=== PATIENT | male | born 1935 | race Caucasian/White ===

== ENCOUNTER → 2023-03-03 14:55 | Outpatient (BNVA) | payer MEDICARE, SELFPAY | PROVIDERS: PCP Internal Medicine; Visit Provider Internal Medicine Nephrology | DX: I12.9 Hypertensive chronic kidney disease with stage 1 through stage 4 chronic kidney disease, or unspecified chronic kidney disease (principal); N18.31 Chronic kidney disease, stage 3a | CPT/HCPCS: 99212 ==

== ENCOUNTER 2023-03-03 15:22 | Outpatient (AMB) | payer MEDICARE, SELFPAY ==
--- NOTE | 2023-03-03 15:44 | HO.NEPHOV_ITS ---
HPI HPI Comments History of Present Illness Details I had the privilege of seeing Elio in follow-up for his proteinuric chronic kidney disease. He is diabetic and hypertensive. He is known to have vascular disease including coronary artery disease needing coronary artery bypass grafting. His renal functions have been stable. He denies any chest pain, shortness of breath, paroxysmal nocturnal dyspnea, orthopnea, pedal edema or urinary symptoms. He does not have any orthostasis. He is compliant with medications. His blood pressure has been at goal. He avoids nonsteroidal and anti-inflammatories. He is closely followed by his primary care physician. There were no new active complaints at the time of this office visit. [facility] Medical History (Updated 03/14/23 @ 21:46 by Davidson Rivera MD) Chronic kidney disease, stage 3a Sleep apnea Ischemic heart disease Hypertension Surgical History (Updated 03/03/23 @ 15:44 by Shy Ledesma MA) Hx of CABG Social History (Updated 03/03/23 @ 15:44 by Shy Ledesma MA) Alcohol intake: never Patient Tobacco Use Status: Never used Tobacco Vital Signs 03/03/23 15:46 Height 5 ft 10 in Weight 211 lb 4 oz BMI 30.3 BP 132/60 Blood Pressure Location Lt brachial Position Sitting Pulse 56 Pulse Source Pulse Oximeter Physical Exam Vital Signs: Last Vital Signs Pulse 56 03/03/23 15:46 BP 132/60 03/03/23 15:46 BMI result Body Mass Index 30.3 Const General: comfortable and no acute distress Orientation/consciousness: patient oriented x3 HEENT Head: Yes normocephalic Mouth: Normal oral and palatal mucosa present Eyes EOM: EOMs intact bilaterally Neck Neck: Yes supple Resp Auscultation: clear to auscultation bilaterally Cardio Jugular venous distension: no JVD Rate: regular rate GI Palpation (GI): Soft to palpation Auscultation: normal bowel sounds General: Yes no CVA tenderness Back/Spine/Pelvis Back: no CVA tenderness Skin General skin exam: no rashes or lesions noted Neuro General: patient oriented x3 and moves all extremities Assessment & Plan Assessment & Plan (1) Chronic kidney disease, stage 3a: Code(s): N18.31 - Chronic kidney disease, stage 3a (2) Hypertension: Code(s): I10 - Essential (primary) hypertension Qualifiers: Hypertension type: primary hypertension Qualified Code(s): I10 - Essential (primary) hypertension Plan 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 He is known to have proteinuria. His blood pressure is currently at goal. He has not on any AMPARO inhibitor as he had angioedema from it in the past. He has been having memory issues. His blood pressure has been at goal. He would benefit from a bit of weight loss and dietary changes. He maintains good hydration. His blood sugar control is better. His blood pressure has been at goal. He avoids nonsteroidal anti-inflammatory medications and maintain good hydration. He will be a great candidate for SGLT2 I. I did not make any medication changes today. Follow-up blood work ordered. All his and his 's questions were answered. Follow-up appointment given. Orders: Orders Electrolytes 03/03/23 N18.31 - Chronic kidney disease, stage 3a, I10 - Essential (primary) hypertension Blood Urea Nitrogen 03/03/23 N18.31 - Chronic kidney disease, stage 3a, I10 - Essential (primary) hypertension Creatinine 03/03/23 N18.31 - Chronic kidney disease, stage 3a, I10 - Essential (primary) hypertension Coding Level of Care Code Est Pt Level 4 (02029) Diagnoses Chronic kidney disease, stage 3a N18.31 Primary hypertension I10 Hypertension type: primary hypertension Results Reviewed Nephrology Results: No Data to Display
[2023-03-03 15:46] VITALS: BP 132/60; PULSE 56; BMI 30.3
== END 2023-03-03 16:23 | disposition home or self-care (01) ==
PROVIDERS: PCP Internal Medicine; Visit Provider Internal Medicine Nephrology
DX: N18.31 Chronic kidney disease, stage 3a (principal); I10 Essential (primary) hypertension
CPT/HCPCS: 99214

== ENCOUNTER 2023-08-30 11:00 | Outpatient (AMB) | payer MEDICARE, SELFPAY ==
--- NOTE | 2023-08-30 11:22 | HO.NEPHOV ---
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 He is diabetic and hypertensive. He is known to have vascular disease including coronary artery disease needing coronary artery bypass grafting. His renal functions have been stable. He denies any chest pain, shortness of breath, paroxysmal nocturnal dyspnea, orthopnea, pedal edema or urinary symptoms. He does not have any orthostasis. He is compliant with medications. His blood pressure has been at goal. He avoids nonsteroidal and anti-inflammatories. He is closely followed by his primary care physician. His Nifedipine dose has been reduced to 60 mg daily. There were no new active complaints at the time of this office visit. [facility] Medical History (Updated 03/14/23 @ 21:46 by Davidson Rivera MD) Chronic kidney disease, stage 3a Sleep apnea Ischemic heart disease Hypertension Surgical History Hx of CABG Social History Alcohol intake: never Patient Tobacco Use Status: Never used Tobacco Physical Exam Vital Signs: Last Vital Signs Pulse 49 L 08/30/23 11:23 BP 90/50 L 08/30/23 11:23 Pulse Ox 93 08/30/23 11:23 Oxygen Delivery Method Room Air 08/30/23 11:23 BMI result Body Mass Index 30.8 Const General: comfortable and no acute distress Orientation/consciousness: patient oriented x3 HEENT Head: Yes normocephalic Mouth: Normal oral and palatal mucosa present Eyes EOM: EOMs intact bilaterally Neck Neck: Yes supple Resp Auscultation: clear to auscultation bilaterally Cardio Jugular venous distension: no JVD Rate: regular rate GI Palpation (GI): Soft to palpation Auscultation: normal bowel sounds General: Yes no CVA tenderness Back/Spine/Pelvis Back: no CVA tenderness Skin General skin exam: no rashes or lesions noted Neuro General: patient oriented x3 and moves all extremities Extrem General: Yes no pedal edema Results Reviewed Nephrology Results: No Data to Display Assessment & Plan Assessment & Plan (1) Chronic kidney disease, stage 3a: Code(s): N18.31 - Chronic kidney disease, stage 3a Category: Medical (2) Hypertension: Code(s): I10 - Essential (primary) hypertension Category: Medical Qualifiers: Hypertension type: primary hypertension Qualified Code(s): I10 - Essential (primary) hypertension Plan 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 He is known to have proteinuria. His blood pressure is currently at goal. He has not on any AMPARO inhibitor as he had angioedema from it in the past. He has been having memory issues. His blood pressure has been at goal. He would benefit from a bit of weight loss and dietary changes. He maintains good hydration. His blood sugar control is better. His blood pressure has been at goal. He avoids nonsteroidal anti-inflammatory medications and maintain good hydration. I did not make any medication changes today. Follow-up blood work ordered. All his and his 's questions were answered. Follow-up appointment given. Orders: Orders Blood Urea Nitrogen 6 Months I10 - Essential (primary) hypertension, N18.31 - Chronic kidney disease, stage 3a Creatinine 6 Months I10 - Essential (primary) hypertension, N18.31 - Chronic kidney disease, stage 3a Electrolytes 6 Months I10 - Essential (primary) hypertension, N18.31 - Chronic kidney disease, stage 3a Calcium 6 Months I10 - Essential (primary) hypertension, N18.31 - Chronic kidney disease, stage 3a Protein Creatinine Ratio, Ur 6 Months I10 - Essential (primary) hypertension, N18.31 - Chronic kidney disease, stage 3a Coding Level of Care Code Est Pt Level 4 (11852) Diagnoses Chronic kidney disease, stage 3a N18.31 Primary hypertension I10 Hypertension type: primary hypertension
[2023-08-30 11:23] VITALS: BP 90/50; PULSE 49; O2SAT 93; BMI 30.8
== END 2023-08-30 11:46 | disposition home or self-care (01) ==
PROVIDERS: PCP Internal Medicine; Visit Provider Internal Medicine Nephrology
DX: N18.31 Chronic kidney disease, stage 3a (principal); I10 Essential (primary) hypertension
CPT/HCPCS: 99214

== ENCOUNTER → 2023-08-30 11:00 | Outpatient (BNVA) | payer MEDICARE, SELFPAY | PROVIDERS: PCP Internal Medicine; Visit Provider Internal Medicine Nephrology | DX: I12.9 Hypertensive chronic kidney disease with stage 1 through stage 4 chronic kidney disease, or unspecified chronic kidney disease (principal); N18.31 Chronic kidney disease, stage 3a | CPT/HCPCS: 99212 ==

== ENCOUNTER 2024-04-03 10:32 | Outpatient (AMB) | payer MEDICARE, SELFPAY ==
--- NOTE | 2024-04-03 10:40 | HO.NEPHOV_ITS ---
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 He is diabetic and hypertensive. He is known to have vascular disease including coronary artery disease needing coronary artery bypass grafting. His renal functions have been stable. He denies any chest pain, shortness of breath, paroxysmal nocturnal dyspnea, orthopnea, pedal edema or urinary symptoms. He does not have any orthostasis. He is compliant with medications. His blood pre ssure has been at goal. He avoids nonsteroidal and anti-inflammatories. There were no new active complaints at the time of this office visit. [facility] Medical History (Updated 04/03/24 @ 10:44 by Davidson Rivera MD) Chronic kidney disease, stage 3a Sleep apnea Ischemic heart disease Hypertension Surgical History Hx of CABG Social History Alcohol intake: never Patient Tobacco Use Status: Never used Tobacco Review of Systems Const All systems reviewed & are unremarkable except as noted in HPI and below Physical Exam Const General: comfortable and no acute distress Orientation/consciousness: patient oriented x3 HEENT Head: Yes normocephalic Mouth: Normal oral and palatal mucosa present Eyes EOM: EOMs intact bilaterally Neck Neck: Yes supple Resp Auscultation: clear to auscultation bilaterally Cardio Jugular venous distension: no JVD Rate: regular rate GI Palpation (GI): Soft to palpation Auscultation: normal bowel sounds General: Yes no CVA tenderness Back/Spine/Pelvis Back: no CVA tenderness Skin General skin exam: no rashes or lesions noted Neuro General: patient oriented x3 and moves all extremities Extrem General: Yes no pedal edema Results Reviewed Nephrology Results: No Data to Display Assessment & Plan Assessment & Plan (1) Chronic kidney disease, stage 3a: Code(s): N18.31 - Chronic kidney disease, stage 3a Category: Medical (2) Hypertension: Code(s): I10 - Essential (primary) hypertension Category: Medical Qualifiers: Hypertension type: primary hypertension Qualified Code(s): I10 - Essential (primary) hypertension (3) Diabetic nephropathy associated with type 2 diabetes mellitus: Code(s): E11.21 - Type 2 diabetes mellitus with diabetic nephropathy Category: Medical Plan 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 He is known to have proteinuria. His blood pressure is currently at goal. He has not on any AMPARO inhibitor as he had angioedema from it in the past. He has been having memory issues. His blood pressure has been at goal. He would benefit from a bit of weight loss and dietary changes. He maintains good hydration. His blood sugar control is better. His blood pressure has been at goal. He avoids nonsteroidal anti-inflammatory medications and maintain good hydration. He is a great candidate for SGLT2 i. I did not make any medication changes today. Follow-up blood work ordered. All his and his 's questions were answered. Follow-up appointment given Orders: Orders Protein Creatinine Ratio, Ur 7 Months E11. - Type 2 diabetes mellitus with diabetic nephropathy, I10 - Essential (primary) hypertension, N18.31 - Chronic kidney disease, stage 3a Creatinine 7 Months E11.21 - Type 2 diabetes mellitus with diabetic nephropathy, I10 - Essential (primary) hypertension, N18.31 - Chronic kidney disease, stage 3a Blood Urea Nitrogen 7 Months E11.21 - Type 2 diabetes mellitus with diabetic nephropathy, I10 - Essential (primary) hypertension, N18.31 - Chronic kidney disease, stage 3a Electrolytes 7 Months E11.21 - Type 2 diabetes mellitus with diabetic nephropathy, I10 - Essential (primary) hypertension, N18.31 - Chronic kidney disease, stage 3a Coding Level of Care Code Est Pt Level 4 (75152) Diagnoses Chronic kidney disease, stage 3a N18.31 Primary hypertension I10 Hypertension type: primary hypertension Diabetic nephropathy associated with type 2 diabetes mellitus E11.
[2024-04-03 10:42] VITALS: BP 126/54; PULSE 61; O2SAT 93; BMI 31.0
--- OUTSIDE RECORDS SUMMARY | 2024-04-03 12:32 | XMS_ITS | Data Portability ---
Author Organization [place] - [facility], Allergy Address [address] [address] Assessment Encounter Date Assessment Date Assessment LastModified by Organization Details LastModified Time 08/29/2023 08/29/2023 Patient presents for cerumen removal. Cerumen removed bilaterally without difficulty. TMs normal to inspection. Follow up as scheduled for repeat procedure. abril Not available 08/29/2023 12:18:23 03/05/2024 03/05/2024 88-year-old male presents for cerumen removal. Cerumen removed bilaterally. TMs normal to inspection. Follow-up in 6 months. abril Not available 03/05/2024 12:14:09 Plan of Treatment Reminders Order Date Submit Date Provider Last Modified By Organization Details Last Modified Time Details Appointments Establish ed 15 2024 10:00A M PAMELA BLUE PA-C Not available Not available Not available Lab None recorded. Referral None recorded. Procedures None recorded. Surgeries None recorded. Imaging None recorded. Medication Orders None recorded. Patient TargetsNo targets recorded. Patient InstructionsNo instructions recorded. Reason for Referral None Reported. Results Created Date Observation Date Name Description Value Unit Range Abnormal Flag Note LastModifiedBy Organization Detail LastModifiedTime 09/28/1902/11/2022 imagi ng/di agnos tic resul t No observ ation record ed. [email or web address] Not Available 05:44:57 09/28/19 24 03/03/2020 imagi ng/di agnos tic resul t No observ ation record ed. [email or web address] Not Available 05:45:03 09/28/1903/13/2018 imagi ng/di agnos tic resul t No observ ation record ed. [email or web address] Not Available 05:45:10 09/28/1903/13/2018 imagi ng/di agnos tic resul t No observ ation record ed. [email or web address] Not Available 05:45:12 09/28/1912/10/2020 imagi ng/di agnos tic resul t No observ ation record ed. [email or web address] Not Available 05:45:46 09/28/1912/24/2020 imagi ng/di agnos tic resul t No observ ation record ed. [email or web address] Not Available 05:46:02 09/28/1912/25/2018 imagi ng/di agnos tic resul t No observ ation record ed. [email or web address] Not Available 05:46:06 09/28/1912/25/2018 imagi ng/di agnos tic resul t No observ ation record ed. [email or web address] Not Available 05:46:07 09/28/1912/24/2020 audio gram No observ ation record ed. [email or web address] Not Available 05:47:09 Result Notes None recorded. Problems Name Problem SNOMED Code Status Onset Date Resolution Date Notes Provider Name and Address Organization Details Recorded Time Sensorin eural hearing loss 71052227 Active 2016 Sensorin eural hearing loss; Location : bilatera l CMS Risk: low risk CMS Treatmen t: new problem (to examiner ): addition al workup planned Sensori neural hearing loss; Location : left CMS Risk: low risk CMS Treatmen t: new problem (to examiner ): addition al workup planned Sensori neural hearing loss; Location : right CM S Risk: low risk CMS Treatmen t: new problem (to examiner ): addition al workup planned Not Available [facility] 03:02:45 Sensorin eural hearing loss of bilatera l ears 581838675 Active 2016 Sensorin eural hearing loss bilatera lly; [facility] Treatmen t: new problem (to examiner ): no addition al workup planned Note: Date Diagnose d: 5 4:29 PM (389.18) ; Start Date : 03/08/19 15 Senso rineural hearing loss, bilatera l; Note: Date Diagnose d: 08/12/2016 10:59 AM (H90.3) Not Available [facility] 4 03:02:45 Otorrhea of right ear [id number] 60913 Completed 202009/09/2023 Otorrhea , right ear; Note: Date Diagnose d: 11:33 AM (H92.11) Not Available [facility] 4 03:02:47 Posterio r rhinorrh ea 40071833 Active 2016 Postnasa l drip; Note: Date Diagnose d: 08/12/2016 10:16 AM (R09.82) Not Available [facility] 4 03:02:46 Diffuse otitis externa 73164190 Active 2020 Diffuse otitis externa, right ear; Note: Date Diagnose d: 1 11:33 AM (H60.311 ) Not Available [facility] 4 03:02:45 Impacted cerumen of bilatera l ears 73901063861 47753 Active 2022 Impacted cerumen, bilatera l; Note: Date Diagnose d: 05/13/2022 2:03 PM (H61.23) Not Available [facility] 4 03:02:44 Nasal congesti on 00785672 Active 2016 Nasal congesti on; Note: Date Diagnose d: 08/12/2016 10:16 AM (R09.81) Not Available [facility] 4 03:02:46 Obstruct belkis sleep apnea syndrome 12939908 Active 2016 Obstruct belkis sleep apnea (adult) (pediatr ic); Note: Date Diagnose d: 08/12/2016 10:16 AM (G47.33) Not Available [facility] 4 03:02:47 Contact dermatit is 74244315 Active 2014 Dermatit is, contact; [facility] Treatmen t: new problem (to examiner ): no addition al workup planned Note: Date Diagnose d: 5 4:29 PM (692.9) Not Available [facility] 4 03:02:46 Candidal otitis externa 13703311 Active 2021 Candidal otitis externa; Note: Date Diagnose d: 2 11:45 AM (B37.84) Not Available [facility] 4 03:02:45 Allergic rhinitis 77501086 Active 2016 Other allergic rhinitis ; Note: Date Diagnose d: 08/12/2016 10:16 AM (J30.89) Not Available [facility] 4 03:02:46 Problem Notes None recorded. Procedures Surgical History Date Name Laterality Status Provider Name and Address Organization Details Recorded Time 5 Cerumen removal without microscope bilat completed PAMELA BLUE PA-C [address] [place] [address], [phone], [facility] 03/05/2024 12:13:46 4 Cerumen removal without microscope bilat completed PAMELA BLUE PA-C [address] [place] [address], [phone], [facility] 08/29/2023 12:18:11 Imaging Results Imaging Date Name Status LastModified by Organiz ation Details LastModified Time 02/11/2022 imaging/diagno stic result completed Information not available 09/28/2023 05:44:57 03/03/2020 imaging/diagno stic result completed Information not available 09/28/2023 05:45:03 03/13/2018 imaging/diagno stic result completed Information not available 09/28/2023 05:45:10 03/13/2018 imaging/diagno stic result completed Information not available 09/28/2023 05:45:12 12/10/2020 imaging/diagno stic result completed Information not available 09/28/2023 05:45:46 12/24/2020 imaging/diagno stic result completed Information not available 09/28/2023 05:46:02 12/25/2018 imaging/diagno stic result completed Information not available 09/28/2023 05:46:06 12/25/2018 imaging/diagno stic result completed Information not available 09/28/2023 05:46:07 12/24/2020 audiogram completed Information not available 09/28/2023 05:47:09 Procedure Notes None recorded. Medical Equipment None Reported. Allergies Allergen ID Allergen Name Allergen Category Reaction Reaction Severity Criticality Documentation Date Start Date Code Code System Note Provider Name and Address Organization Details Recorded Time [id number] lisinopri l medicatio n other Not available Not available 06/21/2023 80957 RxNorm React ion: other react ion, Unkno wn; Not Available [facility] 01:16:20 Medications Name Sig Start Date Stop Date Status Note LastModified by Organization Details LastModified Time Elocon 0.1 % topical cream 12/10 completed Medicati on ID: [id number] Pr escribed By Name: Charisma Louie nd Name: Elocon S end Method: E-Prescr ibed Sub s Allowed: subs OK Speci al Instruct ion: Apply to ears twice a day as needed M edicatio nGeneric Name: Elocon Not Available Not Available Not Available celecoxib 200 mg capsule active Not Available Not Available Not Available metformin 500 mg tablet TAKE 1 TABLET TWICE A DAY active Not Available Not Available No t Available Novolin 70/30 U-100 Insulin 100 unit/mL subcutane ous suspensio n active Not Available Not Available Not Available carvedilo l 25 mg tablet 08/12 completed Medicati on ID: [id number] Du ration Value: 90 Brand Name: carvedil ol Send Method: E-Prescr ibed Sub s Allowed: subs OK Medic ationGen ericName : carvedil ol Not Available Not Available Not Available clonidine HCl 0.1 mg tablet 2014 active Medicati on ID: [id number] Du ration Value: 90 Brand Name: clonidin e HCl Send Method: E-Prescr ibed Sub s Allowed: subs OK Medic ationGen ericName : clonidin e HCl Not Available Not Available Not Available carvedilo l 6.25 mg tablet active Not Available Not Available Not Available doxycycli ne hyclate 100 mg capsule 1 capsule by mouth active Not Available Not Available No t Available Toprol XL 25 mg tablet,ex tended release 12/10 completed Medicati on ID: [id number] D uration Value: 90 Brand Name: Toprol XL Send Method: E-Prescr ibed Sub s Allowed: subs OK Medic ationGen ericName : Toprol XL Not Available Not Available Not Available carvedilo l 12.5 mg tablet active Not Available Not Available Not Available donepezil 5 mg tablet active Not Available Not Available Not Available nifedipin e ER 90 mg tablet,ex tended release active Not Available Not Available Not Available Elocon 0.1 % topical lotion (solution ) 12/10 completed Medicati on ID: [id number] Br and Name: Elocon S end Method: E-Prescr ibed Sub s Allowed: subs OK Speci al Instruct ion: Apply to ears twice a day as needed M edmaggienarda Cheekic Name: Elocon Not Available Not Available Not Available donepezil 10 mg tablet active Not Available Not Available Not Available sertralin e 100 mg tablet active Not Available Not Available Not Available Valeri Low Dose Aspirin 81 mg tablet,de layed release 2020 active Medicati on ID: [id number] B rand Name: Aspirin Low Dose Sen d Method: E-Prescr ibed Sub s Allowed: subs OK Medic ationGen ericName : Aspirin Low Dose Not Available Not Available Not Available betametha sone valerate 0.1 % lotion active Not Available Not Available Not Available amlodipin e 5 mg tablet 08/12 completed Medicati on ID: 18341 Du ration Value: 90 Brand Name: amlodipi ne Send Method: E-Prescr ibed Sub s Allowed: subs OK Medic ationGen ericName : amlodipi ne Not Available Not Available Not Available chlorthal idone 50 mg tablet 12/10 completed Medicati on ID: [id number] D uration Value: 30 Brand Name: chlortha lidone S end Method: E-Prescr ibed Sub s Allowed: subs OK Medic ationGen ericName : chlortha lidone Not Available Not Available Not Available omeprazol e 40 mg capsule,d elayed release 2016 active Medicati on ID: [id number] D uration Value: 90 Brand Name: omeprazo le Send Method: E-Prescr ibed Sub s Allowed: subs OK Medic ationGen ericName : omeprazo le Not Available Not Available Not Available triamcino lone acetonide 0.1 % topical cream active Not Available Not Available Not Available quinapril 40 mg tablet 12/10 completed Medicati on ID: [id number] D uration Value: 90 Brand Name: quinapri l Send Method: E-Prescr ibed Sub s Allowed: subs OK Medic ationGen ericName : quinapri l Not Available Not Available Not Available levothyro xine 25 mcg tablet active Not Available Not Available Not Available lorazepam 0.5 mg tablet 2020 active Medicati on ID: [id number] B rand Name: lorazepa m Send Method: E-Prescr ibed Sub s Allowed: subs OK Medic ationGen ericName : lorazepa m Not Available Not Available Not Available triamcino lone acetonide 0.025 % topical cream active Not Available Not Available Not Available tamsulosi n 0.4 mg capsule TAKE 1 CAPSULE DAILY active Not Available Not Available No t Available Humalog U-100 Insulin 100 unit/mL subcutane ous solution INJECT 25 UNITS PRE BREAKFAS T, 15-20 UNITS PRE LUNCH, 20-25 UNITS PRE DINNER active Not Available Not Available No t Available OneTouch Ultra Test strips active Not Available Not Available Not Available sulfaceta mide sodium 10 % eye drops 2021 active Medicati on ID: [id number] D uration Value: 14 Brand Name: sulfacet amide sodium S end Method: E-Prescr ibed Sub s Allowed: subs OK Speci al Instruct ion: apply 4 drops to right ear twice daily. M edicatio nGeneric Name: sulfacet amide sodium Not Available Not Available Not Available erythromy lakesha 5 mg/gram (0.5 %) eye ointment active Not Available Not Available Not Available Ponaris nasal solution 1 ml into both nostrils 2016 active Medicati on ID: [id number] D uration Value: 30 Brand Name: Maggie Send Method: E-Prescr ibed Sub s Allowed: subs OK Speci al Instruct ion: use 1/2 dropper in each nostril BID... M edicatio nGeneric Name: Maggie Not Available Not Available Not Available clotrimaz ole-betam ethasone 1 %-0.05 % topical cream Apply 1 a small amount to affected area twice a day 2021 active Medicati on ID: [id number] D uration Value: 14 Brand Name: clotrima zole-bet amethaso ne Send Method: E-Prescr ibed Sub s Allowed: subs OK Speci al Instruct ion: Apply with fingerti p to external ear BID X 3 week and then as needed M edicatio nGeneric Name: clotrima zole-bet amethaso ne Not Available Not Available Not Available polymyxin B sulfate 10,000 unit-trim ethoprim 1 mg/mL eye drops active Not Available Not Available No t Available Humulin N NPH U-100 Insulin (isophane susp) 100 unit/mL subcutane ous INJECT 50 UNITS SUBCUTAN EOUSLY IN THE MORNING AND 75 UNITS AT BEDTIME active Not Available Not Available No t Available clotrimaz ole 1 % topical solution 2020 active Medicati on ID: [id number] D uration Value: 14 Prescri bed By Name: KASANDRA Rinaldi nd Name: pedrojacky tariq strong Method: E-Prescr ibed Sub s Allowed: subs OK Speci al Instruct ion: 4 drops to affected ear two times a day X 14 days Med icationG enericNa me: clotrima zole Not Available Not Available Not Available hydrochlo rothiazid e 25 mg tablet TAKE 1 TABLET DAILY active Not Available Not Available No t Available furosemid e 20 mg tablet 08/12 completed Medicati on ID: [id number] Du ration Value: 90 Brand Name: furosemi de Send Method: E-Prescr ibed Sub s Allowed: subs OK Medic ationGen ericName : furosemi de Not Available Not Available Not Available gabapenti n 100 mg capsule active Not Available Not Available Not Available azelastin e 137 mcg (0.1 %) nasal spray active Not Available Not Available Not Available nifedipin e ER 60 mg tablet,ex tended release active Not Available Not Available Not Available metformin ER 500 mg tablet,ex tended release 24 hr 2014 [place] Medicati on ID: [id number] Du ration Value: 90 Brand Name: metformi n Send Method: E-Prescr ibed Sub s Allowed: subs OK Medic ationGen ericName : metformi n Not Available Not Available Not Available doxycycli ne hyclate 100 mg tablet active Not Available Not Available Not Available tobramyci n 0.3 %-dexamet hasone 0.1 % eye drops,sivan pension active Not Available Not Available Not Available neomycin 3.5 mg/g-poly myxin B 10,000 unit/g-de xameth 0.1 % eye oint active Not Available Not Available Not Available ezetimibe 10 mg tablet active Not Available Not Available Not Available cyclospor ine 0.05 % eye drops in a dropperet te INSTILL 1 DROP INTO BOTH EYES TWICE DAILY active Not Available Not Available No t Available Ciprodex 0.3 %-0.1 % ear drops,sivan pension 4 drop into right ear 12/10 completed Medicati on ID: [id number] D uration Value: 14 Prescri bed By Name: KASANDRA Rinaldi nd Name: Ciprodex Send Method: E-Prescr ibed Sub s Allowed: subs OK Speci al Instruct ion: x 14 days Med icationG enericNa me: Ciprodex Not Available Not Available Not Available rosuvasta tin 20 mg tablet 2016 active Medicati on ID: [id number] D uration Value: 90 Brand Name: rosuvast atin Sen d Method: E-Prescr ibed Sub s Allowed: subs OK Medic ationGen ericName : rosuvast atin Not Available Not Available Not Available rosuvasta tin 40 mg tablet active Not Available Not Available Not Available memantine 5 mg tablet active Not Available Not Available Not Available hydrochlo rothiazid e 12.5 mg tablet 2020 active Medicati on ID: [id number] B rand Name: hydrochl orothiaz raegan Send Method: E-Prescr ibed Sub s Allowed: subs OK Medic ationGen ericName : hydrochl orothiaz raegan Not Available Not Available Not Available fenofibra te 54 mg tablet active Not Available Not Available Not Available clonidine HCl ER 0.1 mg tablet,ex tended release,1 2 hr active Not Available Not Available Not Available sertralin e 200 mg capsule active Not Available Not Available Not Available Vitals Date Recorded Body height Body mass index (BMI) Body weight Provider Name and Address Organization Details Last Updated DateTime 08/29/2023 177.8 cm 30.4 kg/m2 39643.58 g Forest Pedraza [facility] 08/29/2023 11:24:58 Date Recorded Body height Body mass index (BMI) Body weight Provider Name and Address Organization Details Last Updated DateTime 03/05/2024 177.8 cm 35.6 kg/m2 164109.91 g Ling Mendes [facility] 03/05/2024 10:48:01 Social History None recorded. Functional Status None recorded. Mental Status None recorded. Family History Nothing Reported. Medical History No medical history recorded. Past Encounters Encounter ID Performer Location Encounter Start Date Encounter Closed Date Diagnosis/Indication Diagnosis SNOMED-CT Code Diagnosis ICD10 Code Diagnosis Note [id number] ARIES BULL MD [facility] [address] [address] 08/29/2023 11:11:13 08/29/2023 11:44:07 Impacted cerumen of bilateral ears 4361163850 256227 H61.23 [id number] ARIES BULL MD [facility] [address] [address] 03/05/2024 10:41:57 03/05/2024 11:02:54 Impacted cerumen of bilateral ears 5684686185 132031 H61.23 Health Concerns Section Related Observation LastModified by Organization Detai ls LastModified Time None Recorded Concern Status LastModified by Organization Details LastModified Time None Recorded Advance Directives Directive None Recorded Payers Encounter Date Sequence Insurance Name Policy Number Policy Vargas Covered Member ID Vargas Member ID Guarantor Name 08/29/2023 1 [place] [employer] Elio Hernandez [id number] Elio Mosquedack 08/29/2023 2 [place] [id number] Elio Monroy Mary [id number] Elio [place]wick 03/05/2024 1 [place] Elio Mosquedack [id number] Elio Monroy Mary 03/05/2024 2 [place] [id number] Elio Monroy Mary [id number] Elio Porfirio Mary Notes Date Note Type Note Provider Name and Address Organization Details Recorded Time 08/29/2023 text/html 88-year-old male presents for cerumen removal. No acute issues since last visit. ARIES WEINBERG MD [address] [place] [address], [phone], [place] [facility] 08/29/2023 12:57:48 03/05/2024 text/html 88-year-old male presents for cerumen removal. Recently obtained new hearing aids. ARIES WEINBERG MD [address] [place] [address], [phone], [place] [facility] 03/05/2024 12:40:27
--- OUTSIDE RECORDS SUMMARY | 2024-04-03 12:32 | XMS_ITS | Continuity of Care Document ---
Author Organization [facility] [address] [place] [address] Phone [phone] Care Team Providers Care Vulcanizer Name Role Phone Pratik Kelly M.D. Care Team Information Recei asmita [phone] Problems Active Problems Provider Date Type 2 diabetes mellitus Svitlana Rodriguez M.D. Onset: 10/05/2021 Essential hypertension Zoya Tenorio Onset: 10/05/2021 Hyperlipidemia Svitlana Rodriguez M.D. Ons et: 10/05/2021 Osteoarthritis Svitlana Rodriguez M.D. Ons et: 10/05/2021 Obstructive sleep apnea syndrome Svitlana Schuster M.D. Onset: 10/05/2021 Anxiety Svitlana Rodriguez M.D. Ons et: 10/05/2021 Hearing loss Svitlana Rodriguez M.D. Ons et: 10/05/2021 Gastroesophageal reflux disease Svitlana Murray M.D. 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 Onset: 10/05/2021 Basal cell carcinoma of skin Svitlana santos M.D. Onset: 10/05/2021 Coronary atherosclerosis Svitlana Rodriguez M.D. Onset: 10/05/2021 Myocardial infarction Nirmala Tenorio Onset: 10/05/2021 Diabetic peripheral neuropathy Svitlana anderson M.D. Onset: 10/05/2021 Peripheral vascular disease Nirmala AvilaD. Onset: 10/05/2021 Depressive disorder Svitlana Rodriguez M.D. Onset: 01/26/2023 Chronic kidney disease stage 3 Svitlana anderson M.D. Onset: 01/27/2023 Social History Type Date Description Comments Sex Unknown Lives With Significant Other Work Status Retired Tobacco Use Start: Unknown Never Smoked Cigarettes ETOH Use Never used alcohol Allergies and adverse reactions Active Allergies Criticality Reaction Severity Comments Date Lisinopril Unable to assess criticality facial swelling 10/05/2021 Medications Active Medications SIG Qnty Indications Order ing Provider Date Freestyle Brodie 3/[place]/Glucose Monitoring Fyudzp8Tjdyld Device use with sensors to check blood sugar 1units E11Valeriy Rodriguez M.D. 12/28/2023 Onetouch UltraStrips Test 1 to 2 times daily 200units E11Valeriy Rodriguez M.D. 04/30/2022 Metformin IZY006iv Tablets Take 1 Tablet Twice A Day 180tabs E11Valeriy Rodriguez M.D. 03/23/2022 Levothyroxine Vgvsur64lvf Tablets take 1 tablet by mouth every day Unknown Carvedilol6.25mg Tablets 1 by mouth twice a day Unknown Nifedipine ER60mg Tablets ER 24HR 1 by mouth every day Unknown Tevsilpvl89pz Tablets 1 by mouth every day Unknown Sertraline KWY620hy Capsules 1 by mouth every day Unknown Donepezil GMB30lx Tablets 1 by mouth every day Unknown Aspirin Ec Low Dghx62kb Tablets DR 1 by mouth every day Svitlana Rodriguez M.D. Vitamin C500mg Chewtabs 1 by mouth every day Svitlana Rodriguez M.D. Folic Gdjc521ccq Tablets 1 qd Svitlana Rodriguez M.D. Iron (Ferrous Sulfate)325(65Fe) mg Tablets 1 by mouth every day Svitlana Rodriguez M.D. Fish Oil [place]-70320vh Capsules 1 by mouth every day Svitlana Rodriguez M.D. Rqrb52gk Tablets 1 by mouth every day Svitlana Rodriguez M.D. Zaqycpqut272mm Tablets 1 by mouth every day Svitlana Rodriguez M.D. Calcium 600 + H385-534eu-Krmv Tablets 1 by mouth every day Svitlana Rodriguez M.D. Vitamin Z590cva (2000 Ut) Capsules 1 by mouth every day Svitlana Rodriguez M.D. Vitamin M2867jj Tablets 1 qd Svitlana Rodriguez M.D. Vitamin I070678flb Tablets ER 1 by mouth every day Svitlana Rodriguez M.D. Csxhdoyywjr907bu Tablets 4 tabs prior to dental work Svitlana Rodriguez M.D. Restasis0.05% Emulsion 1 drop each eye twice daily Svitlana Rodriguez M.D. Humulin I411Rybd/ML Suspension Inject 50 Units In The Morning 75 Units AT Bedtime 130ml E11.8 Svitlana Rodriguez M.D. Kufzbqf509Okyr/ML Solution 25 units prebreakfast, 15-20 units prelunch, 20-25 units predinner (dx:11.8) 60ml E11.8 Svitlana Rodriguez M.D. Flomax0.4mg Capsules Take 1 tablet by mouth every day 90caps Svitlana Rodriguez M.D. Rosuvastatin Nfozdxg45bi Tablets 1 by mouth every day 90tabs Svitlana Rodriguez M.D. Kzhaxkzwtknwpmwhznx61 .5mg Tablets 1 by mouth every day 90tabs Svitlana Rodriguez M.D. Kxaimrefun07sa Capsules DR 1 by mouth every day 90caps Svitlana Rodriguez M.D. Clonidine HCL0.1mg Tablets 1 tabs by mouth twice a day Am/PM 90tabs Svitlana Rodriguez M.D. Vital Signs Date Vital Result Comment 01/23/2024 3:03pm BP Systolic 144 mmHg BP Diastolic 58 mmHg Heart Rate 61 /min Height 70 inches 5'10 Weight 218.12 lb BMI (Body Mass Index) 31.3 kg/m2 Results Test Acquired Date Facility Test Result H/L Range N ote Laboratory test finding 01/23/2024 Inhouse Glucose Fingerstick 187 Hemoglobin A1c 7.5% Laboratory test finding 09/14/2023 Inhouse Glucose Fingerstick 147 Hemoglobin A1c 8.1% Laboratory test finding 05/20/2023 Inhouse Glucose Fingerstick 119 Hemoglobin A1c 7.7% Laboratory test finding 01/26/2023 Inhouse Glucose Fingerstick 132 Hemoglobin A1c 8.8% Laboratory test finding 09/17/2022 Inhouse Glucose Fingerstick 158 Hemoglobin A1c 8.0% Laboratory test finding 06/08/2022 [facility] Hemoglobin A1c 7.8 % High (4.0-5.6) 1 Laboratory test finding 05/17/2022 Inhouse Glucose Fingerstick 144 Laboratory test finding 01/22/2022 [facility] Hemoglobin A1c <pending> Laboratory test finding 10/05/2021 Inhouse Glucose Fingerstick 7.6% Hemoglobin A1c 147 1 MONITORING: In known diabetic patients, hemoglobin A1c targets should be discussed with health care provider. DIAGNOSTIC USE: The [place] Diabetes Association (ADA) and the World Health Organization (WHO) recommend the use of HbA1c to diagnose diabetes using a threshold of 6.5%. Patients who have an HbA1c between 5.7% and 6.4% are considered at increased risk for developing diabetes in the future. CAUTION: Falsely low HbA1c results may be observed in patients with hemolytic anemia, homozygous forms of abnormal hemoglobin (e.g. SS, CC, SC), , recent blood loss or hemoglobin F greater than 7%. Fructosamine may be used as an alternate test in these cases. REFERENCE: ADA: Standards of Medical Care in Diabetes 2020, The Journal of Clinical and Applied Research and Education Volume 43, Supplement 1 Procedures Date Code Description Status 01/23/2024 57584 Glucose Monitoring Interpeta tion And Report Completed 09/14/2023 42734 Glucose Monitoring Interpeta tion And Report Completed 05/20/2023 75407 Glucose Monitoring Interpeta tion And Report Completed 09/17/2022 35302 Glucose Monitoring Interpeta tion And Report Completed 01/22/2022 98757 Collection Of Venous Blood B y Venipuncture Completed 10/05/2021 94470 Glucose Monitoring Interpeta tion And Report Completed Medical Devices Description No Information Available Encounters Type Date Location Provider Dx Diagnosis Office Visit 01/23/2024 3:00p Main Office Svitlana Rodriguez M.D. 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 01/23/2024 E11.51 Type 2 diabetes mellitus with diabetic peripheral angiopathy without gangrene Svitlana Rodriguez M.D. 01/23/2024 I25.10 Atherosclerotic heart disease of [place] coronary artery without angina pectoris Svitlana Rodriguez M.D. 01/23/2024 I10 Essential (primary) hyperten porsche Svitlana Rodriguez M.D. 01/23/2024 Z79.4 correction (current) use of i nsulin Svitlana Rodriguez M.D. 01/23/2024 E11.65 Type 2 diabetes mellitus with hyperglycemia Svitlana Rodriguez M.D. 01/23/2024 E03.9 Hypothyroidism, unspecified Svitlana Rodriguez M.D. Plan of Treatment Future Appointment(s):* 05/24/2024 2:15 pm - Svitlana Rodriguez M.D. at Main Office 10/05/2021 - Svitlana Rodriguez M.D.* E11.8 Type 2 diabetes mellitus with unspecified complications * I10 Essential (primary) hypertension * I25.10 Atherosclerotic heart disease of [place] coronary artery without angina pectoris Functional Status Description No Information Available Mental Status Description No Information Available Referrals Description No Information Available
--- OUTSIDE RECORDS SUMMARY | 2024-04-03 12:32 | XMS_ITS | Clinical Summary ---
Author Organization [facility] Address [address] [place] [address] Phone Care Team Providers Care Construction Rep Name Role Phone Pratik Kelly MD Primary Care Provider [phone] Allergies Active Allergy Reactions Criticality Noted Date Comments Lisinopril Other (see comments) 05/05/2020 Medications metFORMIN XR (GLUCOPHAGE-XR) 500 MG 24 hr tablet Take 1 tablet by mouth 2 (two) times a day 1 Active cloNIDine (CATAPRES) 0.1 MG tablet Take 1 tablet by mouth 2 (two) times a day 0 Active carvedilol (COREG) 12.5 MG tablet Take 1 tablet by mouth 2 (two) times a day 1 Active hydroCHLOROthia zide (HYDRODIURIL) 12.5 MG tablet Take 1 tablet by mouth 1 (one) time each day 1 Active rosuvastatin (CRESTOR) 20 MG tablet Take 1 tablet by mouth 1 (one) time each day 1 Active NIFEdipine CC (ADALAT CC) 90 MG 24 hr tablet Take 1 tablet by mouth 1 (one) time each day 0 Active NovoLIN 70/30 (70-30) 100 UNIT/ML injection 1 Active omeprazole (PriLOSEC) [address] capsule Take 40 mg by mouth 1 (one) time each day Do not crush or chew. Active acetaminophen (TYLENOL) 500 MG tablet Take 500 mg by mouth if needed for mild pain Active fluorouracil (EFUDEX) 5 % cream Apply topically Active alclomethasone (ACLOVATE) 0.05 % cream Apply topically Active insulin lispro (HumaLOG) 100 UNIT/ML injection Inject under the skin Active insulin NPH, Isophane, (HumuLIN,NovoLI N) 100 UNIT/ML injection Inject under the skin Active zinc gluconate 50 MG tablet Take 50 mg by mouth 1 (one) time each day Active cyanocobalamin (VITAMIN B-12) 1000 MCG tablet Take 100 mcg by mouth 1 (one) time each day Active Magnesium 250 MG tablet Take 1 tablet by mouth 1 (one) time each day Active calcium carbonate-vitam in D 600-400 MG-UNIT per tablet Take 1 tablet by mouth 1 (one) time each day Active omega-3 (FISH OIL) 1200 MG capsule Take by mouth 1 (one) time each day Active Cholecalciferol 50 MCG (2000 UT) capsule Take 1 tablet by mouth 1 (one) time each day Active docusate sodium (COLACE) 100 MG capsule Take 100 mg by mouth 1 (one) time each day Active aspirin (ST KASSIE) 81 MG EC tablet Take 81 mg by mouth 1 (one) time each day Active sertraline (ZOLOFT) 100 MG tablet Take 1 tablet by mouth 1 (one) time each day Active tamsulosin (FLOMAX) 0.4 MG 24 hr capsule Take 0.4 mg by mouth 1 (one) time each day Active fenofibrate (TRICOR) 54 MG tablet Take 54 mg by mouth 1 (one) time each day Active cycloSPORINE (RESTASIS) 0.05 % ophthalmic emulsion 1 drop 2 (two) times a day Active Active Problems Problem Noted Date Diagnosed Date Anxiety 10/05/2021 Basal cell carcinoma of skin 10/05/2021 Diabetic peripheral neuropathy 10/05/2021 Gastroesophageal reflux disease 10/05/2021 H/O: depression 10/05/2021 Hearing loss 10/05/2021 Hyperlipidemia 10/05/2021 Myocardial infarction 10/05/2021 Obstructive sleep apnea syndrome 10/05/2021 Osteoarthritis 10/05/2021 Squamous cell carcinoma of skin of face 10/06/19 Type 2 diabetes mellitus 10/05/2021 Acute non-ST segment elevation myocardial infarc tion 05/05/2021 Calcific coronary arteriosclerosis 05/05/2021 Diverticulitis of colon 05/05/2021 Hypertension 05/05/2021 Proteinuria, not otherwise specified 11/04/2020 Stage 3a chronic kidney disease 05/06/2020 Edema 05/05/2020 Essential hypertension 05/05/2020 Social History Tobacco Use Types Packs/Day Years Used Date Smoking Tobacco: Never Smokeless Tobacco: Never Alcohol Use Standard Drinks/Week Comments Never 0 (1 standard drink = 0.6 oz pur e alcohol) Sex and Gender Information Value Date Recorded Sex Assigned at Not on file Legal Sex Male 4:57 PM EST Gender Identity Not on file Sexual Orientation Not on file Last Filed Vital Signs Vital Sign Reading Time Taken Comments Blood Pressure 122/80 05/13/2022 2:09 PM EDT Pulse 66 05/13/2022 2:09 PM EDT Temperature - - Respiratory Rate - - Oxygen Saturation 96% 05/13/2022 2:09 PM EDT Inhaled Oxygen Concentration - - Weight 96.5 kg (212 lb 12.8 oz) 05/13/2022 2:09 PM EDT Height - - Body Mass Index - - Plan of Treatment Health Maintenance Due Date Last Done Comments Pneumococcal Vaccine: 65+ Years (1 of 2 - PCV) 1941 Diabetes: Hemoglobin A1C 12/29/2021 020, 06/05/2019 Diabetes: Ophthalmology Exam 12/29/2021 Diabetes: Pedal Pulse Checked 12/29/2021 Diabetes: Sensory Foot Exam 12/29/2021 Diabetes: Visual Foot Exam 12/29/2021 Influenza Vaccine (#1) 2023 Hepatitis B Vaccine Aged Out No longe r eligible based on patient's age to complete this topic Procedures Procedure Name Priority Date/Time Associated Diagnosis Comments EXT RESULT ENTRY Routine 01/29/2020 from Last 3 Months or Most Recently Relevant to Health Maintenance Results * (ABNORMAL) EXT RESULT ENTRY (01/29/2020) Hemoglobin 12.5(A) 13.5 - 17.5 Hematocrit 39.3(A) 41.0 - 53.0 Platelets 332 150 - 399 10*3/UL Iron 49 UG/DL Iron Saturation (TSat) 17 % TIBC 232 ug/dL Ferritin 181.0 18.0 - 300.0 NG/ML Sodium 140 137 - 147 Potassium 4.1 3.4 - 5.5 Chloride 96(A) 99 - 108 Bicarbonate (CO2) 33(A) 22 - 30 mmol/L Anion Gap 11 <=30 MMOL/L BUN 20 4 - 21 mg/dL Creatinine 1.20 0.60 - 1.30 mg/dL Calcium 10.5 8.7 - 10.7 mg/dL eGFR Non-Afr Indonesian 54 eGFR 63 Vitamin D, 25-OH, Total 43.2 ng/mL Hemoglobin A1C 7.7(A) 4.0 - 6.0 01/29/2020 Historical Provider LAB BLOOD ORDERABLES Rissa l Result from Last 3 Months or Most Recently Relevant to Health Maintenance Insurance MEDICARE [facility] MEDICARE [facility] Care Teams Construction Rep Relationship Specialty Start Date End Date Pratik Kelly MD [address] [place] [address] PCP - General Internal Medicine 11/04/20
--- OUTSIDE RECORDS SUMMARY | 2024-04-03 12:32 | XMS_ITS | Clinical Summary ---
Author Organization [address] [place] [address] [place] [phone] Phone Care Team Providers Care Mining Consultant Name Role Phone Pratik Kelly MD Primary Care Provider [phone] Allergies Active Allergy Reactions Criticality Noted Date Comments Lisinopril Swelling 12/05/2023 Medications acetaminophen (TYLENOL) 500 mg tablet Take 500 mg by mouth every 8 hours as needed. Active alclomethasone (ACLOVATE) 0.05 % cream Apply topically as needed. Active amoxicillin (AMOXIL) 500 mg capsule Take 4 Caps by mouth once as needed. Active aspirin 81 mg EC tablet Take 1 Tab by mouth daily. Active calcium carbonate-vitam in D3 600 mg-25 mcg (1,000 unit) capsule Calcium Carb-Cholecal ciferol (CALCIUM 1000 + D OR) Take by mouth. Active cholecalciferol (VITAMIN D-3) 50 mcg (2,000 unit) capsule Take 1 Cap by mouth daily. Active cloNIDine (CATAPRES) 0.1 mg tablet Take 1 Tab by mouth 2 times daily. Active cyanocobalamin (VITAMIN B-12) 500 mcg tablet Take 1,000 mg by mouth daily. Active docusate sodium (COLACE) 100 mg capsule Take 1 Cap by mouth 2 times daily. Active fluorouraciL (EFUDEX) 5 % cream Apply topically as needed. Active hydroCHLOROthia zide (HYDRODIURIL) 25 mg tablet TAKE 1 TABLET DAILY 4 Active insulin lispro 100 unit/mL injection Inject 25 Units into the skin Daily before dinner. Active insulin NPH-insulin regular (HumuLIN,NovoLI N 70/30) 100 unit/mL (70-30) injection Inject 75 Units into the skin daily. Active insulin regular (HumuLIN R Regular U-100 Insuln) 100 unit/mL injection Inject 75 Units into the skin at bedtime. Active magnesium 250 mg tablet Take 1 Tab by mouth daily. Active metFORMIN (GLUCOPHAGE) 500 mg tablet Take 1 Tab by mouth 2 times daily. Active omega-3 (FISH OIL) 360-1,200 mg capsule Take 1 Cap by mouth daily. Active omeprazole (PriLOSEC) [address] capsule Take 1 Capsule by mouth daily. Active pyridoxine HCl, vitamin B6, (PYRIDOXINE, VITAMIN B6, ORAL) Take 1 capsule by mouth every morning. Active rosuvastatin (CRESTOR) 40 mg tablet Take 1 Tablet by mouth daily. Active sertraline 150 mg capsule Take 1 Tablet by mouth daily. Active tamsulosin (FLOMAX) 0.4 mg 24 hr capsule Take 1 Capsule by mouth daily. Take 30 mins after same meal every day. Active ZINC ORAL Zinc 50 MG Tab Take 1 Tab by mouth daily. Active tetrahydrozolin e HCl/zinc sulf (EYE DROPS ALLERGY RELIEF OPHT) apply to the eye. Active NIFEdipine CC (ADALAT CC) 60 mg 24 hr tablet Take 1 Tablet by mouth daily. Do not crush, chew, or split. Active donepeziL (ARICEPT) 10 mg tablet Take 1 Tablet by mouth at bedtime. Active levothyroxine (SYNTHROID, LEVOTHROID) 25 mcg tablet Take 1 tablet (25 mcg total) by mouth 1 (one) time each day before breakfast. Active ezetimibe (ZETIA) 10 mg tablet Take 1 tablet (10 mg total) by mouth 1 (one) time each day. 90 tablet 5 Active carvediloL (COREG) 6.25 mg tabletIndicatio ns:Coronary artery disease due to lipid rich plaque Take 1 tablet (6.25 mg total) by mouth 2 (two) times a day with meals. 180 each 3 5 03/06/19 26 Active carvediloL (COREG) 6.25 mg tabletIndicatio ns:Coronary artery disease due to lipid rich plaque Take 1 tablet (6.25 mg total) by mouth 2 (two) times a day with meals. 180 each 3 5 03/06/19 25 Discontinu ed(Reorder ) Active Problems Problem Noted Date Diagnosed Date Bradycardia 12/29/2023 Assessment & Plan (03/28/2024 2:16 PM EST): Difficult to assess etiology of fall. The patient and his feel as though this is from a leg weakness standpoint and not in the setting of dizziness, lightheadedness or bradycardia. I did discuss the potential of updating a monitor to further evaluate for electrical disturbances and overall ventricular heart rates. The patient and his would like to defer at this time. Assessment & Plan (12/29/2023 1:59 PM EST): The patient's expresses significant concern regarding his low heart rate. Unfortunately, the patient does continue to endorse episodes of dizziness and lightheadedness. Subsequently via shared decision making, we will decrease his dose of carvedilol. I have asked her to continue to monitor his symptoms and to reach out if she has noticed an improvement. We did discuss the potential of his blood pressure continuing to rise in light of reducing his carvedilol. Again as outlined above they will monitor blood pressure at home and reach out to our office and they understand the likelihood of needing to increase nifedipine. Coronary artery disease 04/07/2020 Overview (12/05/2023): off-pump single-vessel CABG with BROWN to the LAD [place] [address] Foy when he presented to the hospital with an NSTEMI. His anginal symptom is shoulder and chest discomfort. Last Assessment & Plan: The patient has no anginal symptoms to his current MET workload and his most recent stress test did not show any evidence of ischemia. He will continue his ongoing medical therapy with aspirin, beta-vasu, statin and calcium channel vasu. He is encouraged to increase his exercise in any way possible including breaking it up into smaller stints. Assessment & Plan (03/28/2024 2:16 PM EST): Patient denies any anginal symptoms. Stress testing deferred in the setting of skin cancer treatment as outlined above. He will continue on his current dose of aspirin, carvedilol, rosuvastatin and Zetia. Assessment & Plan (12/28/2023 1:54 PM EST): Orders: Nuclear stress test with myocardial perfusion; Future Lipid panel; Future Thyroid stimulating hormone with reflex free T4; Future Lipid panel Thyroid stimulating hormone with reflex free T4 carvediloL (COREG) 6.25 mg tablet; Take 1 tablet (6.25 mg total) by mouth 2 (two) times a day with meals. Essential hypertension 04/07/2020 Overview (12/05/2023): Last Assessment & Plan: Spoke pressures well controlled in the office today and was elevated at the time of his stress test because he held his medications for 2 days. Continue to follow. His blood pressure monitor has read high in office before when we have correlated it but his blood pressures well controlled at doctor's visits per the patient's friend. Assessment & Plan (03/28/2024 2:16 PM EST): Well-controlled during today's exam with a reading of 120/50. I have made no changes to his medications. Educated on the importance of diet lifestyle to help further assist in reducing blood pressure. The patient was encouraged to follow low-salt low-fat diet, make purposeful strides towards weight loss, and engage in routine aerobic exercise as tolerated. Assessment & Plan (12/29/2023 1:59 PM EST): Elevated during our exam today. I have asked the patient to to please monitor his blood pressure at home 2 hours after taking his medications to further evaluate overall blood pressure control. May have to consider increasing nifedipine should his blood pressure remain greater than 140/80. Educated on the importance of diet lifestyle to help further assist in reducing blood pressure. The patient was encouraged to follow low-salt low-fat diet, make purposeful strides towards weight loss, and engage in routine aerobic exercise as tolerated. Hyperlipidemia 04/07/2020 Overview (12/05/2023): Last Assessment & Plan: Patient's LDL is well controlled, but just her concerns are elevated. We discussed dietary modification. Apparently when he feels as though his blood sugar is dropping, he will eat cookies. I advised considering snacks with protein in them instead of just sugary carbohydrates to help regulate his blood sugar. He will try this. Assessment & Plan (03/28/2024 2:16 PM EST): Continue statin and Zetia. Goal LDL <70 Encounters Date Type Department Care Team Description 03/28/2024 1:10 PM EST Office Visit [facility] [address] [facility] [address] [place] [phone] Melissa Soto NP Coronary artery disease due to lipid rich plaque (Primary Dx); Essential hypertension; Other hyperlipidemia; Bradycardia 03/06/2024 Telephone [facility] [address] [facility] [address] [place] [phone] Evangelist Busby MD Med Refill (Carvedilol) 02/17/2024 Telephone [facility] - [facility] [address] [facility] [address] [place] [phone] Xin Alberto MA Med Refill (Incoming fax [facility] Coreg , Zetia) 01/03/2024 Telephone [facility] [address] [facility] [address] [place] [phone] Dell Morrow [place] Results (Lipid, TSH from [facility]) from Last 3 Months Social History Tobacco Use Types Packs/Day Years Used Date Smoking Tobacco: Never Smokeless Tobacco: Never Alcohol Use Standard Drinks/Week Comments No 0 (1 standard drink = 0.6 oz pur e alcohol) Sex and Gender Information Value Date Recorded Sex Assigned at Male 03/19/2024 11:21 AM EST Legal Sex Male 11:44 AM EST Gender Identity Male 03/19/2024 11:21 AM EST Sexual Orientation Not on file Obstetrics History Last Filed Vital Signs Vital Sign Reading Time Taken Comments Blood Pressure 120/50 03/28/2024 1:18 PM EST Pulse 55 03/28/2024 1:18 PM EST Temperature - - Respiratory Rate - - Oxygen Saturation 96% 03/28/2024 1:18 PM EST Inhaled Oxygen Concentration - - Weight 99.3 kg (219 lb) 03/28/2024 1:18 PM EST Height 177.8 cm (5' 10 ) 03/28/2024 1:18 PM EST Body Mass Index 31.42 03/28/2024 1:18 PM EST Plan of Treatment Upcoming Encounters Date Type Department Care Team (Late st Contact Info) Description 05/01/2024 1:00 PM EDT Office Visit [facility] Hematology Oncology [address] [place] [phone] Jennifer Dacosta, DO [address] [place] [address] 09/03/2024 2:00 PM EDT Office Visit [facility] [address] [facility] [address] [place] [phone] Evangelist Busby MD [address] [facility] [address] [place] [address] Health Maintenance Due Date Last Done Comments Diabetes: Annual Foot Exam 1945 Diabetes: Annual Retina Eye Exam 1945 DTaP,Tdap,and Td Vaccines (1 - Tdap) 1956 RSV Immunization Patients 60+ Years Old (1 - 1-dose 75+ series) 2012 Pneumococcal Vaccine: 50+ Years (2 of 2 - PPSV23) 01/22/2015 11/27/2014 Cholesterol Screening (Lipid Panel) 01/05/2022 Depression Screening 01/05/2022 Falls Risk Assessment 01/05/2022 Medicare Annual Wellness Visit 01/05/2022 Social Influencers of Health Screening 01/05/2022 Hypertension/CHF/CAD Annual BMP Blood Test 01/17/2022 COVID-19 Vaccine ( season) 2023 01/14/2021, 04/15/2020, 03/18/2020 Diabetes: Blood Sugar Control Test (HGBA1C) 12/28/2023 Zoster Vaccines Completed 12/30/2017, 10/07/2017 Influenza Vaccine Completed 12/21/2023, , 03/02/2021, Additional history exists HIB Vaccines Aged Out No longer eligi ble based on patient's age to complete this topic HPV Vaccines Aged Out No longer eligi ble based on patient's age to complete this topic Hepatitis A Vaccines Aged Out No long er eligible based on patient's age to complete this topic Hepatitis B Vaccines Aged Out No long er eligible based on patient's age to complete this topic IPV Vaccines Aged Out No longer eligi ble based on patient's age to complete this topic MMR Vaccines Aged Out No longer eligi ble based on patient's age to complete this topic Meningococcal ACWY Vaccine Aged Out N o longer eligible based on patient's age to complete this topic Meningococcal B Vacine Aged Out No lo nger eligible based on patient's age to complete this topic RSV Immunization Patients Under 20 months Aged Out No longer eligible based on patient's age to complete this topic Varicella Vaccines Aged Out No longer eligible based on patient's age to complete this topic Insurance MEDICARE [facility] Care Teams Mining Consultant Relationship Specialty Start Date End Date Pratik Kelly MD [address] [place] [address] PCP - General Internal Medicine 01/11/24
--- OUTSIDE RECORDS SUMMARY | 2024-04-03 12:32 | XMS_ITS | Encounter Summary ---
Author Organization [facility] Address [address] [place] [address] Care Team Providers Care Finishing Machine Operator Automatic Name Role Phone Pratik Kelly MD Primary Care Provider + [phone] Reason for Visit * Reason Comments Follow-up 3 mo f/u Encounter Details Date Type Department Care Team (Late st Contact Info) Description 03/28/2024 1:10 PM EST Office Visit [facility] [address] [place] [address] Melissa Soto NP [address] [address] [place] [address] Coronary artery disease due to lipid rich plaque (Primary Dx); Essential hypertension; Other hyperlipidemia; Bradycardia Social History Tobacco Use Types Packs/Day Years [...] AM EST Sexual Orientation Not on file documented as of this encounter Last Filed Vital Signs Vital Sign Reading [...] Mass Index 31.42 03/28/2024 1:18 PM EST documented in this encounter Progress Notes * Melissa Soto NP - 03/28/2024 1:10 PM ESTAssociated Problem(s): Coronary artery disease Patient denies any anginal symptoms. Stress testing deferred in the setting of skin cancer treatment as outlined above. He will continue on his current dose of aspirin, carvedilol, rosuvastatin and Zetia. * Melissa Soto NP - 03/28/2024 1:10 PM ESTAssociated Problem(s): Essential hypertension Well-controlled during today's exam with a reading of 120/50. I have made no changes to his medications. Educated on the importance of diet lifestyle to help further assist in reducing blood pressure. The patient was encouraged to follow low-salt low-fat diet, make purposeful strides towards weightloss, and engage in routine aerobic exercise as tolerated. * Melissa Soto NP - 03/28/2024 1:10 PM ESTAssociated Problem(s): Hyperlipidemia Continue statin and Zetia. Goal LDL <70 * Melissa Soto NP - 03/28/2024 1:10 PM ESTAssociated Problem(s): Bradycardia Difficult to assess etiology of fall. The patient and his feel as though this is from a leg weakness standpoint and not in the setting of dizziness, lightheadedness or bradycardia. I did discussthe potential of updating a monitor to further evaluate for electrical disturbances and overall ventricular heart rates. The patient and his would like to defer at this time. * Melissa Soto NP - 03/28/2024 1:10 PM EST Images from the original note were not included. [facility] PRIMARY ELECTRIC METER TESTER: Evangelist Busby MD PCP: Pratik Kelly MD HPI: Elio Hernandez is a 89 y.o. old male with past medical history of coronary artery disease, status post single vessel CABG with a BROWN to the LAD in [address] Foy presenting to the [facility]. His initial anginal symptom was shoulder and chest discomfort. He also has a history of hypertension, hyperlipidemia, type 2 diabetes, hypothyroidism and cognitive impairment. Patient had an echocardiogram in June 2017. He was noted to have frequent PVCs throughout testing. Normal LV chamber size, mild concentric LVH. No regional wall motion abnormalities. Normal LV systolic function with an LVEF of 55%. Normal RV size and function. Atria normal in size. No hemodynamically significant valvular disease. 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 LVEF now 60 to 65% Patient underwent stress testing in June 2020. There is no evidence of obstructive coronary disease by myocardial perfusion imaging. He was noted to be hypertensive throughout the testing and subsequently his hydrochlorothiazide was increased. 14-day R OCT monitor in October 2021 for palpitations. There were no sustained arrhythmias and itappeared that the patient's palpitations correlated with PVCs. His overall burden was about 3.3%. Last echocardiogram performed in November 2021. This revealed normal LV size and systolic function. Moderate concentric LVH. Normal regional wall motion LVEF 60 to 65%. Normal RV size and systolic function atria normal in size. No significant valvular abnormalities. Dilated ascending aorta at 4.1 cm. Carotid duplex performed in October 2023. This revealed 1 to 49% stenosis in the bilateral internal carotid arteries. Patient presented to our office for preoperative cardiovascular risk assessment for potential carpal tunnel surgery in December 2023. He endorsed atypical chest discomfort and stress testing was ordered. Unfortunately, stress testing was not performed as the patient was seen by dermatology and is now being treated for skin cancer on his bilateral lower extremities. He has been referred to heme-onc . He denies any overt chest discomfort or anginal symptoms. He does inform me that he experienced afall today however he feels as though he fell out of his chair. He denies any dizziness, lightheadedness, chest pain, palpitations, nausea or diaphoresis leading up to the event. He states compliancewith his medications. There have been no cardiac related hospitalizations since his last office visit. ACTIVE MEDICATIONS: Outpatient Medications Marked as Taking for the 03/28/24 encounter (Office Visit) with Melissa Soto NP Medication Sig Dispense Refill acetaminophen (TYLENOL) 500 mg tablet Take 500 mg by mouth every 8 hours as needed. alclomethasone (ACLOVATE) 0.05 % cream Apply topically as needed. amoxicillin (AMOXIL) 500 mg capsule Take 4 Caps by mouth once as needed. aspirin 81 mg EC tablet Take 1 Tab by mouth daily. calcium carbonate-vitamin D3 600 mg-25 mcg (1,000 unit) capsule Calcium Carb- Cholecalciferol (CALCIUM 1000 + D OR) Take by mouth. carvediloL (COREG) 6.25 mg tablet Take 1 tablet (6.25 mg total) by mouth 2 (two) times a day with meals. 180 each 3 cholecalciferol (VITAMIN D-3) 50 mcg (2,000 unit) capsule Take 1 Cap by mouth daily. cloNIDine (CATAPRES) 0.1 mg tablet Take 1 Tab by mouth 2 times daily. cyanocobalamin (VITAMIN B-12) 500 mcg tablet Take 1,000 mg by mouth daily. docusate sodium (COLACE) 100 mg capsule Take 1 Cap by mouth 2 times daily. donepeziL (ARICEPT) 10 mg tablet Take 1 Tablet by mouth at bedtime. ezetimibe (ZETIA) 10 mg tablet Take 1 tablet (10 mg total) by mouth 1 (one) time each day. 90 tablet 0 fluorouraciL (EFUDEX) 5 % cream Apply topically as needed. hydroCHLOROthiazide (HYDRODIURIL) 25 mg tablet TAKE 1 TABLET DAILY insulin lispro 100 unit/mL injection Inject 25 Units into the skin Daily before dinner. insulin NPH-insulin regular (HumuLIN,NovoLIN 70/30) 100 unit/mL (70-30) injection Inject 75 Units into the skin daily. insulin regular (HumuLIN R Regular U-100 Insuln) 100 unit/mL injection Inject 75 Units into the skin at bedtime. magnesium 250 mg tablet Take 1 Tab by mouth daily. metFORMIN (GLUCOPHAGE) 500 mg tablet Take 1 Tab by mouth 2 times daily. NIFEdipine CC (ADALAT CC) 60 mg 24 hr tablet Take 1 Tablet by mouth daily. Do not crush, chew, or split. omega-3 (FISH OIL) 360-1,200 mg capsule Take 1 Cap by mouth daily. omeprazole (PriLOSEC) [address] capsule Take 1 Capsule by mouth daily. pyridoxine HCl, vitamin B6, (PYRIDOXINE, VITAMIN B6, ORAL) Take 1 capsule by mouth every morning. rosuvastatin (CRESTOR) 40 mg tablet Take 1 Tablet by mouth daily. sertraline 150 mg capsule Take 1 Tablet by mouth daily. tamsulosin (FLOMAX) 0.4 mg 24 hr capsule Take 1 Capsule by mouth daily. Take 30 mins after same meal every day. tetrahydrozoline HCl/zinc sulf (EYE DROPS ALLERGY RELIEF OPHT) apply to the eye. ZINC ORAL Zinc 50 MG Tab Take 1 Tab by mouth daily. PAST MEDICAL HISTORY: Patient Active Problem List Diagnosis Coronary artery disease Essential hypertension Hyperlipidemia Bradycardia ALLERGIES: Allergies Allergen Reactions Lisinopril Swelling SOCIAL HISTORY: Social History Tobacco Use Smoking status: Never Smokeless tobacco: Never Substance Use Topics Alcohol use: No PHYSICAL EXAM: Vitals: 03/28/24 1318 BP: 120/50 Pulse: 55 SpO2: 96% Weight: 99.3 kg (219 lb) Height: 1.778 m (70 ) Physical Exam Constitutional: General: He is not in acute distress. HENT: Head: Normocephalic. Eyes: Pupils: Pupils are equal, round, and reactive to light. Neck: Vascular: Carotid bruit present. Comments: left Cardiovascular: Rate and Rhythm: Normal rate and regular rhythm. Pulses: Normal pulses. Heart sounds: Normal heart sounds. No murmur heard. No friction rub. No gallop. Pulmonary: Effort: Pulmonary effort is normal. No respiratory distress. Breath sounds: No wheezing, rhonchi or rales. Abdominal: General: Abdomen is flat. Bowel sounds are normal. There is no distension. Palpations: Abdomen is soft. Musculoskeletal: General: No swelling. Normal range of motion. Cervical back: Normal range of motion. Right lower leg: No edema. Left lower leg: No edema. Skin: General: Skin is warm and dry. Neurological: Mental Status: He is alert and oriented to person, place, and time. Mental status is at baseline. Psychiatric: Mood and Affect: Mood normal. Thought Content: Thought content normal. EKG: TESTING: ASSESSMENT/PLAN: Assessment & Plan Coronary artery disease due to lipid rich plaque Patient denies any anginal symptoms. Stress testing deferred in the setting of skin cancer treatment as outlined above. He will continue on his current dose of aspirin, carvedilol, rosuvastatin and Zetia. Essential hypertension Well-controlled during today's exam with a reading of 120/50. I have made no changes to his medications. Educated on the importance of diet lifestyle to help further assist in reducing blood pressure. The patient was encouraged to follow low-salt low-fat diet, make purposeful strides towards weightloss, and engage in routine aerobic exercise as tolerated. Other hyperlipidemia Continue statin and Zetia. Goal LDL <70 Bradycardia Difficult to assess etiology of fall. The patient and his feel as though this is from a leg weakness standpoint and not in the setting of dizziness, lightheadedness or bradycardia. I did discussthe potential of updating a monitor to further evaluate for electrical disturbances and overall ventricular heart rates. The patient and his would like to defer at this time. Thank you for allowing us to participate in the care of this patient. The patient will follow up in6 months, sooner PRN. As per AHA guidelines and previously established plan of care by Dr. Evangelist Busby MD, we discussed the following today: 1. Coronary artery disease due to lipid rich plaque 2. Essential hypertension 3. Other hyperlipidemia 4. Bradycardia [facility] Cosigned by Eugene Van MD at 03/29/2024 3:21 PM EST documented in this encounter Plan of Treatment Upcoming Encounters Date Type Department Care Team (Late st Contact Info) Description 05/01/2024 1:00 PM EDT Office Visit [facility] Hematology Oncology [address] [place] [phone] Jennifer Dacosta, DO [address] [place] [address] 09/03/2024 2:00 PM EDT Office Visit [facility] [address] [facility] [address] [place] [address] Evangelist Busby MD [address] [place] [address] documented as of this encounter Visit Diagnoses Diagnosis Coronary artery disease due to lipid rich plaque- Primary Essential hypertension Unspecified essential hypertension Other hyperlipidemia Bradycardia Other specified cardiac dysrhythmias documented in this encounter Care Teams Finishing Machine Operator Automatic Relationship Specialty Start Date End Date Pratik Kelly MD [address] [place] [id number] PCP - General Internal Medicine 01/11/24 documented as of this encounter
--- OUTSIDE RECORDS SUMMARY | 2024-04-03 12:32 | XMS_ITS | Encounter Summary ---
Author Organization [facility] Address [address] [place] [address] Care Team Providers Care Eyeglass Fitter Name Role Phone Pratik Kelly MD Primary Care Provider + [phone] Reason for Visit * Reason Onset Date Comments Med Refill 03/06/2024 Carvedilol Encounter Details Date Type Department Care Team (Late st Contact Info) Description 03/06/2024 Telephone [facility] [address] [facility] [address] [place] [phone] Evangelist Busby MD [address] [facility] [address] [place], [place] [id number] Med Refill (Carvedilol) Social History Tobacco Use Types Packs/Day Years [...] on file documented as of this encounter Ordered Prescriptions Prescription Sig Dispense Quantity Refills Last Filled Start Date End Date carvediloL (COREG) 6.25 mg tabletIndications: Coronary artery disease due to lipid rich plaque Take 1 tablet (6.25 mg total) by mouth 2 (two) times a day with meals. 180 each 3 03/06/2024 03/06/2025 documented in this encounter Progress Notes * Svitlana Langley RN - 03/06/2024 4:26 PM EST Last office visit [facility] Carvedilol refill sent electronically , Sophie informed * Annalise Waylon - 03/06/2024 4:14 PM EST Sophie called requesting a refill for carvedilol 6.25 mg, 1 tablet daily, 90 day supply. Please resend to the [facility] on [address] They no longer use [facility]. documented in this encounter Plan of Treatment Upcoming Encounters Date Type Department Care Team (Late st Contact Info) Description 05/01/2024 1:00 PM EDT Office Visit [facility] H[facility] Oncology [address] [place] [phone] Jennifer Dacosta, DO [address] [place] [address] 09/03/2024 2:00 PM EDT Office Visit [facility] [address] [phone] Evangelist Busby MD [address] [address] documented as of this encounter Visit Diagnoses Diagnosis Coronary artery disease due to lipid rich plaque documented in this encounter Discontinued Medications Medication Sig Discontinue Reason Start Date End Da te carvediloL (COREG) 6.25 mg tabletIndications:Cates ry artery disease due to lipid rich plaque Take 1 tablet (6.25 mg total) by mouth 2 (two) times a day with meals. Reorder 02/21/2024 03/06/2024 documented as of this encounter Care Teams Eyeglass Fitter Relationship Specialty Start Date End Date Pratik Kelly MD [address] [place] [address] PCP - General Internal Medicine 01/11/24 documented as of this encounter
== END 2024-04-03 10:53 | disposition home or self-care (01) ==
PROVIDERS: PCP Internal Medicine; Visit Provider Internal Medicine Nephrology
DX: N18.31 Chronic kidney disease, stage 3a (principal); I10 Essential (primary) hypertension; E11.21 Type 2 diabetes mellitus with diabetic nephropathy
CPT/HCPCS: 99214

== ENCOUNTER → 2024-04-03 10:32 | Outpatient (BNVA) | payer MEDICARE, SELFPAY | PROVIDERS: PCP Internal Medicine; Visit Provider Internal Medicine Nephrology | DX: E11.22 Type 2 diabetes mellitus with diabetic chronic kidney disease (principal); I12.9 Hypertensive chronic kidney disease with stage 1 through stage 4 chronic kidney disease, or unspecified chronic kidney disease; N18.31 Chronic kidney disease, stage 3a; E11.21 Type 2 diabetes mellitus with diabetic nephropathy | CPT/HCPCS: 99212 ==

== ENCOUNTER 2024-08-30 10:24 | Outpatient (REF) | payer MEDICARE, SELFPAY ==
[2024-08-30 17:49] LABS: Appearance Urine Clear; Glucose Urine UA Negative (Negative); PH 6.5 (5.0-9.0); Specific Gravity - Urine 1.020 (1.005-1.025); UMIC TRIGGER UA YES
== END 2024-08-30 10:25 | disposition home or self-care (01) ==
LOC: HO.HKASLDS 10:24
PROVIDERS: PCP Internal Medicine; Visit Provider Internal Medicine Nephrology
DX: I12.9 Hypertensive chronic kidney disease with stage 1 through stage 4 chronic kidney disease, or unspecified chronic kidney disease (principal); E11.22 Type 2 diabetes mellitus with diabetic chronic kidney disease; N18.31 Chronic kidney disease, stage 3a; R80.9 Proteinuria, unspecified; R82.998 Other abnormal findings in urine
CPT/HCPCS: 81001; 87086; 99212

== ENCOUNTER 2024-08-30 10:24 | Outpatient (AMB) | payer MEDICARE, SELFPAY ==
--- NOTE | 2024-08-30 10:45 | HO.NEPHOV ---
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 He is diabetic and hypertensive. He is known to have vascular disease including coronary artery disease needing coronary artery bypass grafting. His renal functions have been stable. He denies any chest pain, shortness of breath, paroxysmal nocturnal dyspnea, orthopnea, pedal edema or urinary symptoms. He does not have any orthostasis. He is compliant with medications. His blood pressure has been at goal. He avoids nonsteroidal and anti-inflammatories. He has been having some dark urine without any symptoms. There were no new active complaints at the time of this office visit. [facility] Medical History (Updated 08/30/24 @ 11:08 by Davidson Rivera MD) Chronic kidney disease, stage 3a Sleep apnea Ischemic heart disease Hypertension Surgical History Hx of CABG Social History Alcohol intake: never Patient Tobacco Use Status: Never used Tobacco Review of Systems Const All systems reviewed & are unremarkable except as noted in HPI and below Physical Exam Vital Signs: Last Vital Signs Pulse 49 L 08/30/24 10:49 BP 114/62 08/30/24 10:49 Pulse Ox 95 08/30/24 10:49 Oxygen Delivery Method Room Air 08/30/24 10:49 BMI result Body Mass Index 30.7 Const General: comfortable and no acute distress Orientation/consciousness: patient oriented x3 HEENT Head: Yes normocephalic Mouth: Normal oral and palatal mucosa present Eyes EOM: EOMs intact bilaterally Neck Neck: Yes supple Resp Auscultation: clear to auscultation bilaterally Cardio Jugular venous distension: no JVD Rate: regular rate GI Palpation (GI): Soft to palpation Auscultation: normal bowel sounds General: Yes no CVA tenderness Back/Spine/Pelvis Back: no CVA tenderness Skin General skin exam: no rashes or lesions noted Neuro General: patient oriented x3 and moves all extremities Extrem General: Yes no pedal edema Assessment & Plan Assessment & Plan (1) Chronic kidney disease, stage 3a: Code(s): N18.31 - Chronic kidney disease, stage 3a Category: Medical (2) Diabetic nephropathy associated with type 2 diabetes mellitus: Code(s): E11.21 - Type 2 diabetes mellitus with diabetic nephropathy Category: Medical (3) Hypertension: Code(s): I10 - Essential (primary) hypertension Category: Medical Qualifiers: Hypertension type: primary hypertension Qualified Code(s): I10 - Essential (primary) hypertension (4) Dark urine: Code(s): R82.998 - Other abnormal findings in urine Category: Medical Plan 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 He is known to have proteinuria. His blood pressure is currently at goal. He has not on any AMPARO inhibitor as he had angioedema from it in the past. He has been having memory issues. His blood pressure has been at goal. He would benefit from a bit of weight loss and dietary changes. He maintains good hydration. His blood sugar control is better. His blood pressure has been at goal. He avoids nonsteroidal anti-inflammatory medications and maintain good hydration. I ordered urinalysis and urine for culture. If there is any RBC, I shall do imaging studies. I did not make any medication changes today. Follow-up blood work ordered. All his and his 's questions were answered. Follow-up appointment given Orders: Orders UA and rflx microscopic Today R82.998 - Other abnormal findings in urine Creatinine 6 Months E11.21 - Type 2 diabetes mellitus with diabetic nephropathy, I10 - Essential (primary) hypertension, N18.31 - Chronic kidney disease, stage 3a Electrolytes 6 Months E11.21 - Type 2 diabetes mellitus with diabetic nephropathy, I10 - Essential (primary) hypertension, N18.31 - Chronic kidney disease, stage 3a Urine Culture Today R82.998 - Other abnormal findings in urine Blood Urea Nitrogen 6 Months E11.21 - Type 2 diabetes mellitus with diabetic nephropathy, I10 - Essential (primary) hypertension, N18.31 - Chronic kidney disease, stage 3a Coding Level of Care Code Est Pt Level 4 (11311) Diagnoses Chronic kidney disease, stage 3a N18.31 Diabetic nephropathy associated with type 2 diabetes mellitus E11.21 Primary hypertension I10 Hypertension type: primary hypertension Dark urine R82.998
[2024-08-30 10:49] VITALS: BP 114/62; PULSE 49; O2SAT 95; BMI 30.7
--- OUTSIDE RECORDS SUMMARY | 2024-08-30 11:14 | XMS_ITS | Continuity of Care Document ---
Author Organization [facility] [address] [place] [address] Phone [phone] Care Team Providers Care Treer Name Role Phone Pratik Kelly M.D. Care Team Information Recei asmita [phone] Problems Active Problems Provider Date Type 2 [...] stage 3 Svitlana anderson M.D. Onset: 01/27/2023 Benign monoclonal gammopathy Svitlana santos M.D. Onset: 08/13/2024 Social History Type Date Description Comments Sex Male Sex Unknown Lives With Significant Other Work Status Retired Tobacco Use Start: Unknown Never Smoked Cigarettes ETOH Use Never used alcohol Allergies and adverse reactions Active Allergies Criticality Reaction Severity Comments Date Lisinopril Unable to assess criticality facial swelling 10/05/2021 Medications Active Medications SIG Qnty Indications Order ing Provider Date Freestyle Brodie 3 Plus/Sensor/Glucose Monitoring SystemMisc apply one sensor to skin every 15 days 6units E11.9 Svitlana Rodriguez M.D. 08/17/2024 Freestyle Brodie 3/[place]/Glucose Monitoring Woujra7Tlutzh Device use with sensors to check blood sugar 1units E11.Cortney Rodriguez M.D. 12/28/2023 Onetouch UltraStrips Test 1 to 2 times daily 200units E11.Cortney Rodriguez M.D. 04/30/2022 Metformin LDE874di Tablets Take 1 Tablet Twice A Day 180tabs E11.8 Svitlana Rodriguez M.D. 03/23/2022 Cpunjrusg938fh Tablets 1 by mouth every day Svitlana Rodriguez M.D. Levothyroxine Osdumk80ewt Tablets take 1 tablet by mouth every day Unknown Ludv12ag Tablets 1 by mouth every day Svitlana Rodriguez M.D. Fish Oil [place]-19835qn Capsules 1 by mouth every day Svitlana Rodriguez M.D. Iron (Ferrous Sulfate)325(65Fe) mg Tablets 1 by mouth every day Svitlana Rodriguez M.D. Folic Xkva835yde Tablets 1 qd Svitlana Rodriguez M.D. Vitamin C500mg Chewtabs 1 by mouth every day Svitlana Rodriguez M.D. Aspirin Ec Low Ojqm01gc Tablets DR 1 by mouth every day Svitlana Rodriguez M.D. Donepezil HDR18ji Tablets 1 by mouth every day Unknown Sertraline LXG714gu Capsules 1 by mouth every day Unknown Ouzbhukns69vq Tablets 1 by mouth every day Unknown Nifedipine ER60mg Tablets ER 24HR 1 by mouth every day Unknown Carvedilol6.25mg Tablets 1 by mouth twice a day Unknown Calcium 600 + R257-302eh-Hbbc Tablets 1 by mouth every day Svitlana Rodriguez M.D. Vitamin X357oxe (2000 Ut) Capsules 1 by mouth every day Svitlana Rodriguez M.D. Vitamin N6274jd Tablets 1 qd Svitlana Rodriguez M.D. Vitamin E889867xck Tablets ER 1 by mouth every day Svitlana Rodriguez M.D. Gbesyxehcbv399br Tablets 4 tabs prior to dental work Svitlana Rodriguez M.D. Restasis0.05% Emulsion 1 drop each eye twice daily Svitlana Rodriguez M.D. Humulin P083Wzjl/ML Suspension Inject 50 Units In The Morning 75 Units AT Bedtime 130ml E11.8 Svitlana Rodriguez M.D. Zqwinon401Momt/ML Solution Inject 30 Units Pre Breakfast, 25 to 30 Units Pre Lunch, 45 Units Pre Dinner 90ml E11.8 Svitlana Rodriguez M.D. Flomax0.4mg Capsules Take 1 tablet by mouth every day 90caps Svitlana Rodriguez M.D. Rosuvastatin Rodqqgp96ww Tablets 1 by mouth every day 90tabs Svitlana Rodriguez M.D. Sepzyiizjgiyguwbako23. 5mg Tablets 1 by mouth every day 90tabs Svitlana Rodriguez M.D. Quxbsianer14fb Capsules DR 1 by mouth every day 90caps Svitlana Rodriguez M.D. Clonidine HCL0.1mg Tablets 1 tabs by mouth twice a day Am/PM 90tabs Svitlana Rodriguez M.D. Vital Signs Date Vital Result Comment 05/24/2024 2:24pm BP Systolic 140 mmHg BP Diastolic 60 mmHg Heart Rate 62 /min Height 70 inches 5'10 Weight 213.50 lb BMI (Body Mass Index) 30.6 kg/m2 Results Test Acquired Date Facility Test Result H/L Range Note Glucose Fingerstick 05/24/2024 Inhouse Glucose Fingerstick 7.8% Glucose Fingerstick 01/23/2024 Inhouse Glucose Fingerstick 187 Hemoglobin A1c 01/23/2024 Inhouse Hemoglobin A1c 7.5% Glucose Fingerstick 09/14/2023 Inhouse Glucose Fingerstick 147 Hemoglobin A1c 09/14/2023 Inhouse Hemoglobin A1c 8.1% Glucose Fingerstick 05/20/2023 Inhouse Glucose Fingerstick 119 Hemoglobin A1c 05/20/2023 Inhouse Hemoglobin A1c 7.7% Glucose Fingerstick 01/26/2023 Inhouse Glucose Fingerstick 132 Hemoglobin A1c 01/26/2023 Inhouse Hemoglobin A1c 8.8% Glucose Fingerstick 09/17/2022 Inhouse Glucose Fingerstick 158 Hemoglobin A1c 09/17/2022 Inhouse Hemoglobin A1c 8.0% Hemoglobin A1c 06/08/2022 [facility] Hemoglobin A1c 7.8 % High (4.0-5.6) 1 Glucose Fingerstick 05/17/2022 Inhouse Glucose Fingerstick 144 Hemoglobin A1c 01/22/2022 [facility] Hemoglobin A1c <pending> Glucose Fingerstick 10/05/2021 Inhouse Glucose Fingerstick 7.6% Hemoglobin A1c 10/05/2021 Inhouse Hemoglobin A1c 147 1 MONITORING: In known diabetic patients, hemoglobin A1c targets should be discussed with health care provider. DIAGNOSTIC USE: The [place] [employer] (ADA) and the World Health [...] Supplement 1 Procedures Date Code Description Status 05/24/2024 78968 Glucose Monitoring Interpeta tion And Report Completed 01/23/2024 08109 Glucose Monitoring Interpeta tion And Report Completed 09/14/2023 29552 Glucose Monitoring Interpeta tion And Report Completed 05/20/2023 19074 Glucose Monitoring Interpeta tion And Report Completed 09/17/2022 86543 Glucose Monitoring Interpeta tion And Report Completed 01/22/2022 52242 Collection Of Venous Blood B y Venipuncture Completed 10/05/2021 04236 Glucose Monitoring Interpeta tion And Report Completed Medical Devices Description No Information Available Encounters Type Date Location Provider Dx Diagnosis Office Visit 05/24/2024 2:15p Main Office Svitlana Rodriguez M.D. E11.42 Type 2 diabetes mellitus with diabetic polyneuropathy E11.51 Type 2 diabetes w di abetic peripheral angiopath w/o gangrene I25.10 Athscl heart disease of [place] coronary artery w/o ang pctrs I10 Essential (primary) hypertension Z79.4 USP (current) use of insulin E11.65 Type 2 diabetes jones itus with hyperglycemia I73.9 Peripheral vascular disease, unspecified Assessments Date Code Description Provider 05/24/2024 E11.42 Type 2 diabetes mellitus with diabetic polyneuropathy Svitlana Rodriguez M.D. 05/24/2024 E11.51 Type 2 diabetes mellitus with diabetic peripheral angiopathy without gangrene Svitlana Rodriguez M.D. 05/24/2024 I25.10 Atherosclerotic heart disease of [place] coronary artery without angina pectoris Svitlana Rodriguez M.D. 05/24/2024 I10 Essential (primary) hyperten porsche Svitlana Rodriguez M.D. 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 05/24/2024 E11.65 Type 2 diabetes mellitus with hyperglycemia Svitlana Rodriguez M.D. 05/24/2024 I73.9 Peripheral vascu lar disease, unspecified Svitlana Rodriguez M.D. Plan of Treatment Future Appointment(s):* 10/02/2024 10:45 am - Svitlana Rodriguez M.D. at Main Office 10/05/2021 - Svitlana Rodriguez M.D.* E11.8 Type 2 diabetes mellitus with unspecified complications * I10 Essential (primary) hypertension * I25.10 Atherosclerotic heart disease of [place] coronary artery without angina pectoris Functional Status Description No Information Available Mental Status Description No Information Available Referrals Description No Information Available
--- OUTSIDE RECORDS SUMMARY | 2024-08-30 11:14 | XMS_ITS | Clinical Summary ---
Author Organization [address] [place] [address] [place] [phone] Phone Care Team Providers Care Line Fisher Name Role Phone Pratik Kelly MD Primary Care Provider + [phone] Allergies Active Allergy Reactions Criticality Noted Date Comments Lisinopril Swelling 12/05/2023 Medications alclomethasone (ACLOVATE) 0.05 % cream Apply topically as needed. Active amoxicillin (AMOXIL) 500 mg capsule Active aspirin 81 mg EC tablet Take 1 Tab by mouth daily. Active calcium carbonate-vitam in D3 600 mg-25 mcg (1,000 unit) capsule Calcium Carb-Cholecalci ferol (CALCIUM 1000 + D OR) Take by [...] % cream Apply topically as needed. Active insulin lispro 100 unit/mL injection Inject [...] 1 Tablet by mouth at bedtime. Active carvediloL (COREG) 6.25 mg tabletIndicatio ns:Coronary artery disease due to lipid rich plaque Take 1 tablet (6.25 mg total) by mouth 2 (two) times a day with meals. 180 each 3 5 03/06/19 26 Active mupirocin (BACTROBAN) 2 % ointment 5 Active hydroCHLOROthia zide (HYDRODIURIL) 25 mg tablet TAKE 1 TABLET DAILY 90 tablet 2 5 Active ezetimibe (ZETIA) 10 mg tablet TAKE 1 TABLET ONCE DAILY 90 tablet 2 5 Active cycloSPORINE (RESTASIS) 0.05 % ophthalmic emulsion Administer 1 drop into both eyes 2 (two) times a day. 5 Active folic acid (FOLVITE) 1 mg tablet Take 1 tab po 3 times a week 36 each 3 5 Active Active Problems Problem Noted Date Diagnosed Date Alzheimer's dementia ([facility] V24, [facility] V28) 07/20/2024 Class 1 obesity 07/20/2024 History of non-ST elevation myocardial infarctio n (NSTEMI) 07/20/2024 Diabetes ([facility] V24, [facility] V28) 07/20/2024 Bradycardia 12/29/2023 Assessment & Plan (08/20/2024 2:44 PM EDT): Assessment & Plan (03/28/2024 2:16 PM EST): [...] the likelihood of needing to increase nifedipine. Depressive disorder 01/26/2023 Anxiety 10/05/2021 Basal cell carcinoma of skin 10/05/2021 Diabetic peripheral neuropathy ([facility] V24, [facility] V28) 10/05/2021 Gastroesophageal reflux disease 10/05/2021 Hearing loss 10/05/2021 Myocardial infarction ([facility] V24, [facility] V28) 10/05/2021 Obstructive sleep apnea syndrome 10/05/2021 Osteoarthritis 10/05/2021 Peripheral arterial disease ([facility] V24) 2021 Type 2 diabetes mellitus ([facility] V24, [facility] V 28) 10/05/2021 Acute non-ST segment elevati on myocardial infarction ([facility] V24, [facility] V28) 05/05/2021 Diverticulitis of colon 05/05/2021 Proteinuria 11/04/2020 Stage 3 chronic kidney disease ([facility] V24, [facility] V28) 05/06/2020 Edema 05/05/2020 Coronary artery disease 04/07/2020 Overview (12/05/2023): off-pump [...] up into smaller stints. Assessment & Plan (08/20/2024 2:44 PM EDT): Orders: ECG 12 lead Assessment & Plan (03/28/2024 2:16 PM EST): [...] per the patient's friend. Assessment & Plan (08/20/2024 2:44 PM EDT): Assessment & Plan (03/28/2024 2:16 PM EST): [...] Encounters Date Type Department Care Team Description 08/20/2024 2:00 PM EDT Office Visit [facility] [address] [place] [address] Evangelist Busby MD Coronary artery disease due to lipid rich plaque (Primary Dx); Bradycardia; Essential hypertension 08/07/2024 2:00 PM EDT Office Visit [facility] [address] [place] [phone] Rosa Lynch PA Normocytic anemia (Primary Dx); Abnormal serum protein electrophoresis; Stage 3a chronic kidney disease ([facility] V24, [facility] V28) 07/23/2024 2:30 PM EDT [facility] [address] [phone] Lilliana Rodriguez MD Moderate asthma, unspecified whether complicated, unspecified whether persistent (Primary Dx); Obstructive sleep apnea; Nocturnal hypoxemia; Gastroesophageal reflux disease without esophagitis; Mild Alzheimer's dementia of other onset, with other behavioral disturbance ([facility] V24, [facility] V28) from Last 3 Months Social History Tobacco Use Types Packs/Day Years Used Date Smoking Tobacco: Never Passive Smoke Exposure: Never Smokeless Tobacco: Never Tobacco Cessation:Counseling Given: Not Answered Alcohol Use Standard Drinks/Week Comments No 0 (1 standard drink = 0.6 oz pur e alcohol) Sex and Gender Information Value Date Recorded Sex Assigned at Male 03/19/2024 11:21 AM EST Legal Sex Male 11:44 AM EST Gender Identity Male 03/19/2024 11:21 AM EST Sexual Orientation Not on file Obstetrics History Last Filed Vital Signs Vital Sign Reading Time Taken Comments Blood Pressure 124/60 08/20/2024 2:01 PM EDT Pulse 54 08/20/2024 2:01 PM EDT Temperature 36.6 C (97.8 F) 08/07/2024 1:58 PM EDT Respiratory Rate 18 07/23/2024 2:39 PM EDT Oxygen Saturation 97% 08/20/2024 2:01 PM EDT Inhaled Oxygen Concentration - - Weight 95.7 kg (211 lb) 08/20/2024 2:01 PM EDT Height 177.8 cm (5' 10 ) 07/23/2024 2:39 PM EDT Body Mass Index 30.28 07/23/2024 2:39 PM EDT Plan of Treatment Upcoming Encounters Date Type Department Care Team (Late st Contact Info) Description 07/23/2025 10:00 AM EDT [facility] 175 [facility] [address] [place] [phone] Lilliana Rodriguez MD 175 [facility] [address] [place] [address] Health Maintenance Due Date Last Done Comments Diabetes: Annual Foot Exam 1945 Diabetes: Annual Retina Eye Exam 1945 DTaP,Tdap,and Td Vaccines (1 - Tdap) 1954 RSV Immunization Adult Patients (1 - 1-dose 75+ series) 2012 Pneumococcal Vaccine: 50+ Years (2 of 2 - PPSV23) 01/22/2015 11/27/2014 Cholesterol Screening (Lipid Panel) 01/05/2022 Falls Risk Assessment 01/05/2022 Medicare Annual Wellness Visit 01/05/2022 Social Influencers of Health Screening 01/05/2022 COVID-19 Vaccine ( season) 2023 01/14/2021, 04/15/2020, 03/18/2020 Diabetes: Blood Sugar Control Test (HGBA1C) 12/28/2023 Depression Screening 02/08/2024 Influenza Vaccine (#1) 2024 , 11/10/2022, 03/02/2021, Additional history exists Hypertension/CHF/CAD Annual BMP Blood Test 08/07/2025 08/07/2024, 04/03/2024 Zoster Vaccines Completed 12/30/2017, 10/07/2017 HIB Vaccines Aged Out No longer eligi [...] age to complete this topic Meningococcal B Vaccine Aged Out No l onger eligible based on patient's age to complete this topic RSV Immunization Patients Under 20 months Aged Out No longer eligible based on patient's age to complete this topic Varicella Vaccines Aged Out No longer eligible based on patient's age to complete this topic Procedures Procedure Name Priority Date/Time Associated Diagnosis Comments ECG 12-LEAD Routine 08/20/2024 2:06 PM EDT Coronary artery disease due to lipid rich plaque MN PROTEIN ELECTROPHORETIC FRACTIONATION & QUANTITATION SERUM Routine 08/07/2024 2:23 PM EDT Normocytic anemia Abnormal serum protein electrophoresis Stage 3a chronic kidney disease (CMS/HCC V24, CMS/HCC V28) MN IMMUNOFIXATION ELECTROPHORESIS SERUM Routine 08/07/2024 2:23 PM EDT Normocytic anemia Abnormal serum protein electrophoresis Stage 3a chronic kidney disease (CMS/HCC V24, CMS/HCC V28) PROTEIN, TOTAL Routine 08/07/2024 2:23 PM EDT Normocytic anemia Abnormal serum protein electrophoresis Stage 3a chronic kidney disease (CMS/HCC V24, CMS/HCC V28) IMMUNOGLOBULINS IGG, IGA, IGM Routine 08/07/2024 2:23 PM EDT Normocytic anemia Abnormal serum protein electrophoresis Stage 3a chronic kidney disease (CMS/HCC V24, CMS/HCC V28) IMMUNOFIXATION ELECTROPHORESIS Routine 08/07/2024 2:23 PM EDT Normocytic anemia Abnormal serum protein electrophoresis Stage 3a chronic kidney disease (CMS/HCC V24, CMS/HCC V28) CBC WITH AUTO DIFFERENTIAL Routine 08/07/2024 2:23 PM EDT Normocytic anemia Abnormal serum protein electrophoresis Stage 3a chronic kidney disease (CMS/HCC V24, CMS/HCC V28) IRON AND TIBC Routine 08/07/2024 2:23 PM EDT Normocytic anemia Abnormal serum protein electrophoresis Stage 3a chronic kidney disease (CMS/HCC V24, CMS/HCC V28) FERRITIN Routine 08/07/2024 2:23 PM EDT Normocytic anemia Abnormal serum protein electrophoresis Stage 3a chronic kidney disease (CMS/HCC V24, CMS/HCC V28) PROTEIN ELECTROPHORESIS, SERUM Routine 08/07/2024 2:23 PM EDT Normocytic anemia Abnormal serum protein electrophoresis Stage 3a chronic kidney disease (CMS/HCC V24, CMS/HCC V28) KAPPA-LAMBDA QUANTITATIVE FREE LIGHT CHAINS Routine 08/07/2024 2:23 PM EDT Normocytic anemia Abnormal serum protein electrophoresis Stage 3a chronic kidney disease (CMS/HCC V24, CMS/HCC V28) IMMUNOFIXATION ELECTROPHORESIS Routine 08/07/2024 2:23 PM EDT Normocytic anemia Abnormal serum protein electrophoresis Stage 3a chronic kidney disease (CMS/HCC V24, CMS/HCC V28) COMPREHENSIVE METABOLIC PANEL Routine 08/07/2024 2:23 PM EDT Normocytic anemia Abnormal serum protein electrophoresis Stage 3a chronic kidney disease (CMS/HCC V24, CMS/HCC V28) CBC AND DIFFERENTIAL Routine 08/07/2024 2:23 PM EDT Normocytic anemia Abnormal serum protein electrophoresis Stage 3a chronic kidney disease (CMS/HCC V24, CMS/HCC V28) from Last 3 Months Results * ECG 12 lead (08/20/2024 2:06 PM EDT) Ventricular Rate ECG 54 BPM GEMUSE Atrial Rate 54 BPM GEMUSE P-R Interval 200 ms GEMUSE QRS Duration 162 ms GEMUSE Q-T Interval 518 ms GEMUSE QTc 491 ms GEMUSE P Wave [place] 64 degrees GEMUSE R [place] -54 degrees GEMUSE T [place] -19 degrees GEMUSE ECG Interpretation Sinus bradycardia Right bundle branch block Left anterior fascicular block Bifascicular block Abnormal ECG When compared with ECG of 28-DEC-2023 13:12, No significant change was found Confirmed by MD Kehinde, Evangelist ([id number]) on 08/20/2024 2:13:56 PM GEMUSE 08/20/2024 2:06 PM EDT 08/20/2024 2:13 PM EDT us Evangelist Busby MD ECG ORDERABLES Final Res ult Performing Organization Address City/[facility]/ZIP Co de Phone Number GEMUSE * Pathologist Review Immunofixation (08/07/2024 2:23 PM EDT) Pathologist Interpretation Marita Kidd MD 08/08/2024 1:49 PM EDT [facility] Blood Venous blood specimen / Unknown Venipuncture / Unknown 08/07/2024 2:23 PM EDT 08/07/2024 4:46 PM EDT us Rosa REEV[facility] BLOOD ORDERABLES Final Re sult Performing Organization Address [facility] Co de Phone Number [facility] [address] [place] [address], [place] [phone] * PATHOLOGIST REVIEW PROTEIN ELECTROPHORESIS (08/07/2024 2:23 PM EDT) Pathologist [facility] Pathologist Interpretation Marita Kidd MD 08/08/2024 1:50 PM EDT [facility] Blood Venous blood specimen / Unknown Venipuncture / Unknown 08/07/2024 2:23 PM EDT 08/07/2024 4:46 PM EDT Rosa REEVES LAB BLOOD ORDERABLES Final Re sult Performing Organization Address [facility] Co de Phone Number [facility] [address] [place] [address], [place] [phone] * (ABNORMAL) [place]-lambda free light chains, quantitative (08/07/2024 2:23 PM EDT) [place] Free Light Chain 4.45(H) 0.33 - 1.94 mg/dL 08/13/2024 1:07 PM EDT [facility] Lambda Free Light Chain 2.03 0.57 - 2.63 mg/dL 08/13/2024 1:07 PM EDT [facility] [place]/Lambda FLC Ratio 2.19(H) 0.26 - 1.65 08/13/2024 1:07 PM EDT [facility] Comment: Test performed at [facility], [address], [place] [address] Linda Stoner MD, PhD - [employer] Project Manager Blood Venous blood specimen / Unknown Venipuncture / Unknown 08/07/2024 2:23 PM EDT 08/07/2024 4:46 PM EDT us Rosa REEVES LAB BLOOD ORDERABLES Final Re sult [facility] [address] [place] [address] * (ABNORMAL) CBC auto differential (08/07/2024 2:23 PM EDT) WBC 8.6 4.8 - 10.8 K/mcL LAB HEMETOLOGY METHOD 08/07/2024 5:03 PM EDT [facility] RBC 4.50 4.50 - 5.50 M/mcL LAB HEMETOLOGY METHOD 08/07/2024 5:03 PM EDT [facility] Hemoglobin 12.3(L) 13.5 - 17.5 g/dL LAB HEMETOLOGY METHOD 08/07/2024 5:03 PM EDT [facility] Hematocrit 38.0(L) 42.0 - 54.0 % LAB HEMETOLOGY METHOD 08/07/2024 5:03 PM EDT [facility] MCV 84.1 79.0 - 98.0 FL LAB HEMETOLOGY METHOD 08/07[facility]2024 [facility] MCH 27.2 27.0 - 32.0 pcg LAB HEMETOLOGY METHOD 08/07/2024 5:03 PM EDT [facility] MCHC 32.4 32.0 - 37.0 g/dL LAB HEMETOLOGY METHOD 08/07/2024 5[facility] RDW 14.3 11.0 - 15.0 % LAB HEMETOLOGY METHOD 08/07/2024 5:03 PM [facility] Platelets 281 130 - 400 K/mcL LAB HEMETOLOGY METHOD 08/07/2024 5:03 PM [facility] MPV 9.9 7.0 - 11.0 FL LAB HEMETOLOGY METHOD 08/07/2024 5:03 PM [facility] NRBC 0.0 <1.0 % LAB HEMETOLOGY METHOD 08/07/2024 5:03 PM [facility] NRBC Absolute 0.00 <0.10 K/mcL LAB HEMETOLOGY METHOD 08/07/2024 5:03 PM [facility] Neutrophils Relative 72.1 % LAB HEMETOLOGY METHOD 08/07/2024 5:03 PM [facility] Lymphocytes Relative 16.1 % LAB HEMETOLOGY METHOD 08/07/2024 5:03 PM [facility] Monocytes Relative 7.2 % LAB HEMETOLOGY METHOD 08/07/2024 5:03 PM [facility] Eosinophils Relative 3.4 % LAB HEMETOLOGY METHOD 08/07/2024 5:03 PM [facility] Basophils Relative 0.6 % LAB HEMETOLOGY METHOD 08/07/2024 5:03 PM [facility] Immature Granulocytes Relative 0.6 % LAB HEMETOLOGY METHOD 08/07/2024 5:03 PM [facility] Neutrophils Absolute 6.24 1.50 - 7.00 K/mcL LAB HEMETOLOGY METHOD 08/07/2024 5:03 PM [facility] Lymphocytes Absolute 1.39 1.00 - 5.00 K/mcL LAB HEMETOLOGY METHOD 08/07/2024 5:03 PM EDT [facility] Monocytes Absolute 0.62 0.20 - 1.00 K/[facility] LAB HEMETOLOGY METHOD 08/07/2024 5:03 PM EDT [facility] Eosinophils Absolute 0.29 0.00 - 0.50 K/[facility] HEMETOLOGY METHOD 08/07/2024 5:03 PM EDT [facility] Basophils Absolute 0.05 0.00 - 0.20 K/[facility] LAB HEMETOLOGY METHOD 08/07/2024 5:03 PM EDT [facility] Immature Granulocytes Absolute 0.05(H) 0.00 - 0.03 K/[facility] LAB HEMETOLOGY METHOD 08/07/2024 5:03 PM EDT [facility] Blood Venous blood specimen / Unknown Venipuncture / Unknown 08/07/2024 2:23 PM EDT 08/07/2024 4:46 PM EDT us Rosa REEVES LAB BLOOD ORDERABLES Final Re sult [facility] [address] [place] [address], * (ABNORMAL) Iron and TIBC (08/07/2024 2:23 PM EDT) Iron 50 50 - 160 mcg/dL LAB CHEMISTRY METHOD 08/07/2024 6:37 PM EDT [facility] TIBC 294 250 - 450 mcg/dL LAB CHEMISTRY METHOD 08/07/2024 6:37 PM EDT [facility] Iron Saturation 17(L) 20 - 50 % LAB CHEMISTRY METHOD 08/07/2024 6:37 PM EDT [facility] Blood Venous blood specimen / Unknown Venipuncture / Unknown 08/07/2024 2:23 PM EDT 08/07/2024 4:46 PM EDT Rosa REEVES LAB BLOOD ORDERABLES Final Re sult Performing Organization Address [facility]/ZIP Co de Phone Number [facility] [address] [place] [address], [place] [phone] * Immunofixation electrophoresis serum (08/07/2024 2:23 PM EDT) [facility] Immunofixation Result, Serum No monoclonal immunoglobulins detected. LAB CHEMISTRY METHOD 08/08/2024 1:49 PM EDT [facility] Blood Venous blood specimen / Unknown Venipuncture / Unknown 08/07/2024 2:23 PM EDT 08/07/2024 4:46 PM EDT Rosa REEVES LAB BLOOD ORDERABLES Final Re sult Performing Organization Address City/[facility]/ZIP Co de Phone Number [facility] [address] [place] [address], [place] [phone] * Immunoglobulins IgG, IgA, IgM (08/07/2024 2:23 PM EDT) [facility] Total IgG 1,320 549 - 1,584 mg/dL LAB CHEMISTRY METHOD 08/07/2024 6:37 PM EDT [facility] IgA 259 61 - 348 mg/dL LAB CHEMISTRY METHOD 08/07/2024 6:37 PM EDT [facility] IgM 136 23 - 259 mg/dL LAB CHEMISTRY METHOD 08/07/2024 6:37 PM EDT [facility] Blood Venous blood specimen / Unknown Venipuncture / Unknown 08/07/2024 2:23 PM EDT 08/07/2024 4:46 PM EDT Rosa REEVES LAB BLOOD ORDERABLES Final Re sult Performing Organization Address City/[facility]/ZIP Co de Phone Number [facility] [address] [place] [address], [place] [phone] * Protein electrophoresis, serum (08/07/2024 2:23 PM EDT) Total Protein 7.3 6.0 - 8.0 g/dL LAB CHEMISTRY METHOD 08/08/2024 1:50 PM EDT [facility] Albumin, Serum 3.4 2.9 - 4.1 g/dL LAB CHEMISTRY METHOD 08/08/2024 1:50 PM EDT [facility] Alpha 1 Globulin (g/dL) 0.3 0.1 - 0.5 g/dL LAB CHEMISTRY METHOD 08/08/2024 1:50 PM EDT [facility] Alpha 2 Globulin (g/dL) 1.2 0.7 - 1.5 g/dL LAB CHEMISTRY METHOD 08/08/2024 1:50 PM EDT [facility] Beta (g/dL) 1.0 0.7 - 1.5 g/dL LAB CHEMISTRY METHOD 08/08/2024 1:50 PM EDT [facility] Gamma Globulin (g/dL) 1.4 0.7 - 1.9 g/dL LAB CHEMISTRY METHOD 08/08/2024 1:50 PM EDT [facility] SPEP Interpretation Essentially normal pattern. No M-Errol seen. LAB CHEMISTRY METHOD 08/08/2024 1:50 PM EDT [facility] Blood Venous blood specimen / Unknown Venipuncture / Unknown 08/07/2024 2:23 PM EDT 08/07/2024 4:46 PM EDT Rosa REEVES LAB BLOOD ORDERABLES Final Re sult [facility] [address] [place] [address], [place] [phone] * Protein, total (08/07/2024 2:23 PM EDT) [facility] Total Protein 7.3 6.0 - 8.0 g/dL LAB CHEMISTRY METHOD 08/07/2024 5:22 PM EDT [facility] Blood Venous blood specimen / Unknown Venipuncture / Unknown 08/07/2024 2:23 PM EDT 08/07/2024 4:46 PM EDT Rosa REEVES LAB BLOOD ORDERABLES Final Re sult [facility] [address] [place] [address], [place] [phone] * Ferritin (08/07/2024 2:23 PM EDT) [facility] Ferritin 116 26 - 388 ng/mL LAB CHEMISTRY METHOD 08/07/2024 6:37 PM EDT [facility] Blood Venous blood specimen / Unknown Venipuncture / Unknown 08/07/2024 2:23 PM EDT 08/07/2024 4:46 PM EDT us Rosa REEVES LAB BLOOD ORDERABLES Final Re sult Performing Organization Address City/[facility]/ZIP Co de Phone Number [facility] [address] [place] [address], [place] [phone] * (ABNORMAL) Comprehensive metabolic panel (08/07/2024 2:23 PM EDT) [facility] Sodium 138 133 - 145 mmol/L LAB CHEMISTRY METHOD 08/07/2024 6:37 PM EDT [facility] Potassium 4.2 3.5 - 5.5 mmol/L LAB CHEMISTRY METHOD 08/07/2024 6:37 PM EDT [facility] Chloride 101 96 - 110 mmol/L LAB CHEMISTRY METHOD 08/07/2024 6:37 PM [facility] CO2 32 21 - 32 mmol/L LAB CHEMISTRY METHOD 08/07/2024 6:37 PM [facility] Anion Gap 5 3 - 11 LAB CHEMISTRY METHOD 08/07/2024 6:37 PM [facility] Glucose 224(H) 70 - 100 mg/dL LAB CHEMISTRY METHOD 08/07/2024 6:37 PM [facility] BUN 24 5 - 25 mg/dL LAB CHEMISTRY METHOD 08/07/2024 6:37 PM [facility] Creatinine 1.15 0.70 - 1.30 mg/dL LAB CHEMISTRY METHOD 08/07/2024 6:37 PM [facility] eGFR 62 >=60 mL/min/1. 73m2 LAB CHEMISTRY METHOD 08/07/2024 6:37 PM [facility] Comment:Calculation based on the Chronic Kidney Disease Epidemiology Collaboration (CKD-EPI) equation refit without adjustment for race. BUN/Creatinine Ratio 20.9 LAB CHEMISTRY METHOD 08/07/2024 6:37 PM [facility] Calcium 9.2 8.5 - 10.5 mg/dL LAB CHEMISTRY METHOD 08/07/2024 6:37 PM [facility] AST (SGOT) 32 10 - 42 unit/L LAB CHEMISTRY METHOD 08/07/2024 6:37 PM [facility] ALT (SGPT) 78(H) 10 - 60 unit/L LAB CHEMISTRY METHOD 08/07/2024 6:37 PM [facility] Alkaline Phosphatase 74 42 - 121 unit/L LAB CHEMISTRY METHOD 08/07/2024 6:37 PM [facility] Total Protein 7.2 6.0 - 8.0 g/dL LAB CHEMISTRY METHOD 08/07/2024 6:37 PM [facility] Albumin 3.4 3.2 - 5.0 g/dL LAB CHEMISTRY METHOD 08/07/2024 6:37 PM EDT [facility] Total Bilirubin 0.3 0.0 - 1.4 mg/dL LAB CHEMISTRY METHOD 08/07/2024 6:37 PM EDT [facility] Blood Venous blood specimen / Unknown Venipuncture / Unknown 08/07/2024 2:23 PM EDT 08/07/2024 4:46 PM EDT us Rosa REEVES LAB BLOOD ORDERABLES Final Re sult [facility] ([facility]) [facility] [address] [place] [address], [place] [phone] from Last 3 Months Insurance MEDICARE [facility] Care Teams Line Fisher Relationship Specialty Start Date End Date Pratik Kelly MD [address] [place] [address] PCP - General Internal Medicine 01/11/24
--- OUTSIDE RECORDS SUMMARY | 2024-08-30 11:14 | XMS_ITS | Clinical Summary ---
Author Organization [facility] Address [address] [facility] [address] [place] [address] Phone Care Team Providers Care Senior Shipping Clerk Name Role Phone Pratik Kelly MD Primary Care Provider [phone] Allergies Active Allergy Reactions Criticality Noted Date [...] Due Date Last Done Comments Pneumococcal Vaccine: 50+ Years (1 of 2 - PCV) 1954 Diabetes: Hemoglobin A1C 12/29/2021 020, 06/05/2019 Diabetes: Ophthalmology Exam 12/29/2021 Diabetes: Pedal Pulse Checked 12/29/2021 Diabetes: Sensory Foot Exam 12/29/2021 Diabetes: Visual Foot Exam 12/29/2021 Influenza Vaccine (#1) 2024 Hepatitis B Vaccine Aged Out No longe [...] 10.5 8.7 - 10.7 mg/dL eGFR Non-Afr Egyptian 54 eGFR 63 Vitamin D, 25-OH, Total 43.2 ng/mL Hemoglobin A1C 7.7(A) 4.0 - 6.0 01/29/2020 Historical Provider LAB BLOOD ORDERABLES Rissa l Result from Last 3 Months or Most Recently Relevant to Health Maintenance Insurance Medicare [facility] Medicare [facility] Care Teams Senior Shipping Clerk Relationship Specialty Start Date End Date Pratik Kelly MD [address] [place] [address] PCP - General Internal Medicine 11/04/20
== END 2024-08-30 11:17 | disposition home or self-care (01) ==
LOC: HO.HKAS 10:25
PROVIDERS: PCP Internal Medicine; Visit Provider Internal Medicine Nephrology
DX: N18.31 Chronic kidney disease, stage 3a (principal); E11.21 Type 2 diabetes mellitus with diabetic nephropathy; I10 Essential (primary) hypertension; R82.998 Other abnormal findings in urine
CPT/HCPCS: 99214